=== PATIENT | male | born 1970 | race Caucasian/White ===

== ENCOUNTER → 2018-03-18 20:00 | Outpatient (CLI) | payer OTHER, SELFPAY | PROVIDERS: Family Provider Internal Medicine Infectious Disease; PCP Internal Medicine Infectious Disease; Visit Provider Family Medicine | DX: G47.10 Hypersomnia, unspecified (principal); R06.81 Apnea, not elsewhere classified | CPT/HCPCS: 95810 ==

== ENCOUNTER → 2018-06-15 08:59 | Outpatient (CLI) | payer OTHER, SELFPAY | PROVIDERS: Family Provider Family Medicine; PCP Family Medicine; Visit Provider Family Medicine | DX: G47.33 Obstructive sleep apnea (adult) (pediatric) (principal) | CPT/HCPCS: 95811 ==

== ENCOUNTER → 2019-02-28 15:29 | Outpatient (CLI) | payer OTHER, SELFPAY ==
[2019-02-28 17:54] LABS: PSA,Total - Annual Screen 0.92 ng/mL (0.00-4.00)
== END ==
PROVIDERS: Family Provider Family Medicine; PCP Family Medicine; Visit Provider Family Medicine
DX: Z12.5 Encounter for screening for malignant neoplasm of prostate (principal)
CPT/HCPCS: 36415; 84153; G0103

== ENCOUNTER 2019-04-21 07:01 | Day surgery (SDC) | payer OTHER, SELFPAY ==
--- NOTE | 2019-03-28 03:39 | HP_ITS ---
Intake Vital Signs 03/28/19 Height 6 ft 2 in 03/28/19 Weight: 238 lb 7 oz 03/28/19 Body Mass Index (BMI) 30.6 03/28/19 Blood Pressure 127/81 H 03/28/19 Blood Pressure Location Rt brachial 03/28/19 Blood Pressure Position Sitting 03/28/19 Respiratory Rate 18 03/28/19 Pulse Rate 57 L 03/28/19 Pulse Ox 98 Intake Visit Reasons: + cologuard per Dr. Devlin office Chief Complaint: positive cologuard Bank Reconciliator Required: No Is patient in pain?: No Allergies No Known Allergies Allergy (Verified 03/28/19 15:35) Medications Paroxetine HCl [Paxil] 40 mg PO DAILY 12/19/13 [History Confirmed 03/28/19] alprazolam 0.5 mg tablet 0.5 mg PO QHS PRN 03/28/19 [History Confirmed 03/28/19] PFSH Medical History Anxiety (Acute) History of testicular cancer (Acute) Sleep apnea (Acute) Surgical History History of orchiectomy (Acute) Family History Sister Asthma Grandfather Diabetes Social History Smoking Status: Unknown if ever smoked HPI HPI HPI: ALEJANDRA LOUISE, is a 49 M who presents to the office today for HPI HPI Surgical H&P: Yes HPI: ALEJANDRA LOUISE, is a 49 M who presents to the office today for colonoscopy after positive Cologuard test. Patient reports no blood in the stool or abdominal pain. He has no family history of colon cancer. He has never had a colonoscopy. ROS General General: No weight change, appetite, fatigue, colon cancer, breast cancer or weakness HEENT HEENT: No difficulty swallowing, eye injury, eye surgery, swollen glands or hoarseness Endo Endocrine: No thyroid disease, diabetes mellitus, thyroid cancer, Hair loss, heat intolerance or cold intolerance Cardio Cardiovascular: No murmur, pacemaker, heart disease, atrial fibrillation, high blood pressure, heart attack, heart stent, palpitations, shortness of breat with exertion or chest pain Psych Psychiatric: Yes anxiety; no depression or hearing voices Resp Respiratory: No shortness of breath, Yes sleep apnea, No cough, No COPD, No asthma, No emphysema, No wheezing Gastro Gastrointestinal: No abdominal pain, No nausea or vomiting, No diarrhea, No constipation, No blood in stool, No acid reflux, No hemorrhoids, No ulcers, No gallbladder problem, No black,tarry stools Neuro Neurologic: No weakness Exam Const General: cooperative Orientation: alert, oriented x3 Resp Effort & Inspection: normal respiratory effort Auscultation: clear to auscultation bilaterally Cardio Rate: regular rate Rhythm: regular rhythm Heart Sounds: no murmurs GI Inspection: non-distended Palpation: soft, nontender Assessment & Plan Problems 1. Positive colorectal cancer screening using DNA-based stool test R19.5 Plan Patient had positive Cologuard test and I will plan to take the patient for colonoscopy. I explained endoscopy in detail to the patient. I explained the risks including but not limited to stroke or heart attack with anesthesia, perforation of the GI tract, bleeding, infection. I explained that any of these could necessitate further emergency surgery. The patient understands and all questions were answered sufficiently. The patient wishes to proceed with procedure. Garcia Gerard MD Pager: [facility] [address] [place] [address], [address] [place] [address] Office: Orders Orders: Colonoscopy Today R19.5 Coding Level of Care Code Off vis,new,level 3 Diagnoses Positive colorectal cancer screening using DNA-based stool test R19.5 03/28/19 1539 <Electronically signed by Garcia potter MD> Date _ Garcia Gerard MD I have re-examined the patient. There are no clinical changes since date of exam.
[2019-03-28 15:34] VITALS: BMI 30.6
[2019-04-21] VITALS (8 sets, daily range): BP systolic 92–123; BP diastolic 55–75; PULSE 50–59; RESP 16; TEMP 36.6–37.1; O2SAT 97–100; BMI 29.2
--- NOTE | 2019-04-21 08:00 | COLBX_PTH ---
PATIENT: ALEJANDRA LOUISE LOC: EN U#:[id number] AGE/SX: 49/M ROOM: RE04/21/[address]: Dr. Garcia Gerard MD : 1970 BED: DIS: 04/21/2019 SPEC #: [id number] RECD: 04/21/19 10:56 STATUS: BRANDIE GISELA #: [id number] ANABELLA: 04/21/19 08:[address]: Garcia Gerard DEPT: SURGICAL PATHOLOGY RECD BY: Ramirez Patricia ENTERED: 04/21/19 15:03 SP TYPE: COLON BX OTHR DR: Dr. Tee Reid DO Tissues: A - Transverse colon B - Descending colon C - Sigmoid colon biopsy Procedures: Surgery Specimen Level IV HEADER OPERATION: Colonoscopy (MAC) PRE-OP DIAGNOSIS: Positive Cologuard TISSUE SUBMITTED: A - Transverse colon polyp, B - Descending colon polyp, C - Sigmoid colon polyp MICROSCOPIC DIAGNOSIS A. Transverse colon polyp, biopsy: Fragments of hyperplastic polyp. B. Descending colon polyp, biopsy: Hyperplastic polyp. C. Sigmoid colon polyp, biopsy: Hyperplastic polyp. AM:javier 04/24/19 MICROSCOPIC DESCRIPTION Slides are reviewed. GROSS DESCRIPTION A - Received in fixative is one container labeled with the patient's name and designated transverse colon polyp. The specimen consists of multiple irregular fragments of light hays soft tissue that in aggregate measure 0.7 x 0.2 x 0.1 cm. The specimen is totally submitted in one cassette. B - Received in fixative is one container labeled with the patient's name and designated descending colon polyp. The specimen consists of one irregular fragment of light hays soft tissue that measures 0.6 x 0.4 x 0.2 cm. The specimen is totally submitted in one cassette. C - Received in fixative is one container labeled with the patient's name and designated sigmoid colon polyp. The specimen consists of one irregular fragment of light hays soft tissue that measures 0.7 x 0.6 x 0.3 cm. The specimen is bisected and totally submitted in one cassette. / AM:javier 04/21/19 TC:5 CPT: 31323 x3
--- NOTE | 2019-04-21 08:16 | OP.ENDO_ITS ---
04/21/2019 Tee Reid [address] [place] [address] Re : Colonoscopy procedure for [facility] Board Dear Dr. Reid This procedure was performed on Sunday, April 21, 2019. My impressions and recommendations are as follows: Impressions : - Three polyps in the sigmoid colon, in the descending colon and in the transverse colon, removed with a hot snare. Resected and retrieved. - The examination was otherwise normal on direct and retroflexion views. Recommendations : - Discharge patient to home. - Resume previous diet. - Continue present medications. - Await pathology results. - Physician's office will call you with pathology results and recommendations for when to repeat colonoscopy. - Repeat colonoscopy date to be determined after pending pathology results are reviewed for surveillance based on pathology results. My findings are described in the full procedure note, which is enclosed. If I can be of further assistance, please feel free to contact me at Doctor phone number(s): , Work: . Sincerely, Garcia Gerard MD 04/21/2019 8:16:19 AM This report has been signed electronically.
== END 2019-04-21 09:00 | disposition home or self-care (01) ==
LOC: EN 07:03 → AC 07:04
PROVIDERS: Family Provider Family Medicine; PCP Family Medicine; Referring Provider Family Medicine; Visit Provider Surgery
PROC: 0DJD8ZZ Inspection of Lower Intestinal Tract, Via Natural or Artificial Opening Endoscopic (ICD-10-PCS; CPT 45378; principal; 2019-04-21 07:55)
DX: D12.5 Benign neoplasm of sigmoid colon (principal); D12.4 Benign neoplasm of descending colon; D12.3 Benign neoplasm of transverse colon; F41.9 Anxiety disorder, unspecified; R19.5 Other fecal abnormalities; F17.210 Nicotine dependence, cigarettes, uncomplicated; Z90.79 Acquired absence of other genital organ(s)
CPT/HCPCS: 45385; 88305; J7120

== ENCOUNTER → 2020-03-18 09:29 | Outpatient (CLI) | payer OTHER, SELFPAY ==
[2019-04-21 07:18] VITALS: BMI 29.2
[2020-03-18 10:58] LABS: AST(SGOT) 19 U/L (15-37); Alanine Aminotransfer ALT/SGPT 38 U/L (16-61); Albumin, Serum 3.9 g/dL (3.2-5.0); Alkaline Phosphatase 59 U/L (45-117); Anion Gap 5 (5-15); BUN 16 mg/dL (7-18); BUN/Creat Ratio 18.2 RATIO (10-20); Calcium,Total 8.8 mg/dL (8.5-10.1); Chloride 103 mmol/L (98-107); Cholesterol 209 mg/dL (200); Creatinine, Serum 0.88 mg/dL (0.70-1.30); EST Glomerular Filtration Rate 97 mL/min (>60); Est Glom Filt Rate - Afr Amer 117 mL/min (>60); Globulin 3.9 g/dL (2.2-4.2); Glucose 92 mg/dL (74-106); High Density Lipoprotein 38 mg/dL; Potassium 3.5 mmol/L (3.5-5.1); Protein, Total 7.8 g/dL (6.4-8.2); Sodium Level 139 mmol/L (136-145); Triglycerides 206 mg/dL; Very Low Density Lipoprotein 41 mg/dL (5-40)
== END ==
PROVIDERS: PCP Family Medicine; Visit Provider Family Medicine
DX: I10 Essential (primary) hypertension (principal); E78.5 Hyperlipidemia, unspecified
CPT/HCPCS: 36415; 80053; 80061

== ENCOUNTER → 2020-12-27 06:40 | Outpatient (CLI) | payer OTHER, SELFPAY ==
[2019-04-21 07:18] VITALS: BMI 29.2
== END ==
PROVIDERS: PCP Family Medicine; Referring Provider Otolaryngology; Visit Provider Otolaryngology
DX: H93.12 Tinnitus, left ear (principal)
CPT/HCPCS: 36415; 84443

== ENCOUNTER 2020-12-31 09:22 | Outpatient (RCR) | payer OTHER, SELFPAY ==
[2019-04-21 07:18] VITALS: BMI 29.2
[2020-12-31] MEDS: COVID-19 VACC, MRNA(PFIZER)/PF 30 MCG/0.3 ML SYRINGE IM (07:10)
[2021-01-21] MEDS: COVID-19 VACC, MRNA(PFIZER)/PF 30 MCG/0.3 ML SYRINGE IM (06:56)
== END 2021-03-25 23:59 ==
LOC: IMMUN 09:22
PROVIDERS: PCP Family Medicine; Visit Provider Family Medicine
DX: Z23 Encounter for immunization (principal)
CPT/HCPCS: 0001A; 0002A; 91300

== ENCOUNTER → 2022-03-03 | Outpatient (CLI) | payer OTHER, SELFPAY ==
[2022-03-03 16:51] LABS: Absolute Lymphocyte Count 2.11 X10^3/uL (0.83-4.51); Absolute Neutrophil Count 3.8 X10^3/uL (2.0-7.7); Basophil# 0.06 X10^3/uL; Basophil% 0.9 % (0-1); Eosinophil# 0.24 X10^3/uL; Eosinophils% 3.5 % (0-5); Hematocrit 48.6 % (40-54); Hemoglobin 16.6 g/dL (13.0-16.5); Lymphocyte # 2.11 X10^3/ul (0.83-4.51); Mean Corp Hgb Conc 34.2 g/dL (32-36); Mean Corpuscular Hgb 30.6 pg (27.0-32.0); Mean Corpuscular Volume 89.5 fL (80-94); Monocyte# 0.51 X10^3/uL; Monocyte% 7.5 % (0-10); NRBC Flagged by Analyzer 0 % (0-5); Neutrophil # 3.84 X10^3/uL (2.7-7.7); Neutrophil % 56.5 % (47-70); Platelet Count 261 K/mm3 (150-450); RBC Distribution Width CV 12.9 % (11.6-14.6); RBC Distribution Width SD 42.5 fl (35.1-43.9); Red Blood Count 5.43 M/mm3 (4.6-6.2); White Blood Count 6.8 K/mm3 (4.4-11.0)
[2022-03-03 17:19] LABS: ALB/GLOB Ratio 1.1 RATIO (0.9-2.4); AST(SGOT) 17 U/L (15-37); Alanine Aminotransfer ALT/SGPT 39 U/L (16-61); Albumin, Serum 3.9 g/dL (3.2-5.0); Alkaline Phosphatase 57 U/L (45-117); Anion Gap 5 (5-15); BUN 12 mg/dL (7-18); BUN/Creat Ratio 15.2 RATIO (10-20); Calcium,Total 8.8 mg/dL (8.5-10.1); Chloride 107 mmol/L (98-107); Cholesterol 203 mg/dL (200); Creatinine, Serum 0.79 mg/dL (0.70-1.30); EST Glomerular Filtration Rate 109 mL/min (>60); Est Glom Filt Rate - Afr Amer 132 mL/min (>60); Globulin 3.4 g/dL (2.2-4.2); Glucose 98 mg/dL (74-106); High Density Lipoprotein 37 mg/dL; PSA,Total - Annual Screen 1.22 ng/mL (0.00-4.00); Protein, Total 7.3 g/dL (6.4-8.2); Sodium Level 140 mmol/L (136-145); Triglycerides 132 mg/dL; Very Low Density Lipoprotein 26 mg/dL (5-40)
== END | disposition home or self-care (01) ==
PROVIDERS: PCP Family Medicine; Referring Provider Family Medicine; Visit Provider Family Medicine
DX: Z00.00 Encounter for general adult medical examination without abnormal findings (principal); Z12.5 Encounter for screening for malignant neoplasm of prostate
CPT/HCPCS: 36415; 80053; 80061; 84153; 85025; G0103

== ENCOUNTER → 2022-06-05 | Outpatient (CLI) | payer OTHER, SELFPAY ==
[2022-06-05 16:02] LABS: Vitamin D,25 Hydroxy 16.1 ng/mL
[2022-06-16 17:57] LABS: Testosterone, % Free 2.04 % (1.50-4.20); Testosterone, Total 309 ng/dL (264-916)
== END | disposition home or self-care (01) ==
LOC: LAB 14:34
PROVIDERS: PCP Family Medicine; Referring Provider Family Medicine; Visit Provider Family Medicine
DX: R53.83 Other fatigue (principal); E55.9 Vitamin D deficiency, unspecified
CPT/HCPCS: 36415; 82306; 84402; 84403

== ENCOUNTER → 2022-09-08 | Outpatient (CLI) | payer OTHER, SELFPAY ==
[2022-09-08 15:47] LABS: Vitamin D,25 Hydroxy 50.4 ng/mL
== END | disposition home or self-care (01) ==
LOC: BFHLAB 13:06
PROVIDERS: PCP Family Medicine; Visit Provider Family Medicine
DX: E55.9 Vitamin D deficiency, unspecified (principal); E29.1 Testicular hypofunction
CPT/HCPCS: 36415; 82306; 84403

== ENCOUNTER → 2023-05-20 | Outpatient (CLI) | payer BC, SELFPAY ==
[2023-05-20 12:32] LABS: Absolute Lymphocyte Count 2.67 X10^3/uL (0.83-4.51); Basophil# 0.07 X10^3/uL; Basophil% 0.9 % (0-1); Eosinophil# 0.26 X10^3/uL; Eosinophils% 3.4 % (0-5); Hematocrit 48.1 % (40-54); Hemoglobin 16.3 g/dL (13.0-16.5); Lymphocyte # 2.67 X10^3/ul (0.83-4.51); Lymphocyte % 35.2 % (19-41); Mean Corp Hgb Conc 33.9 g/dL (32-36); Mean Corpuscular Hgb 29.9 pg (27.0-32.0); Mean Corpuscular Volume 88.3 fL (80-94); Mean Platelet Vol. 11.1 fl (6.2-12.0); Monocyte% 7.9 % (0-10); NRBC Flagged by Analyzer 0 % (0-5); Neutrophil # 3.96 X10^3/uL (2.7-7.7); Neutrophil % 52.3 % (47-70); Platelet Count 261 K/mm3 (150-450); RBC Distribution Width CV 13.4 % (11.6-14.6); RBC Distribution Width SD 43.4 fl (35.1-43.9); Red Blood Count 5.45 M/mm3 (4.6-6.2); White Blood Count 7.6 K/mm3 (4.4-11.0)
[2023-05-20 13:14] LABS: AST(SGOT) 20 U/L (15-37); Alanine Aminotransfer ALT/SGPT 36 U/L (16-61); Albumin, Serum 3.7 g/dL (3.2-5.0); Alkaline Phosphatase 55 U/L (45-117); Anion Gap 6 (5-15); BUN 13 mg/dL (7-18); BUN/Creat Ratio 15.4 RATIO (10-20); Calcium,Total 8.8 mg/dL (8.5-10.1); Chloride 105 mmol/L (98-107); Cholesterol 195 mg/dL (200); Creatinine, Serum 0.85 mg/dL (0.70-1.30); EST Glomerular Filtration Rate 100 mL/min (>60); Est Glom Filt Rate - Afr Amer 121 mL/min (>60); Globulin 3.8 g/dL (2.2-4.2); Glucose 81 mg/dL (74-106); High Density Lipoprotein 39 mg/dL; PSA,Total - Annual Screen 1.12 ng/mL (0.00-4.00); Potassium 3.9 mmol/L (3.5-5.1); Protein, Total 7.5 g/dL (6.4-8.2); Sodium Level 138 mmol/L (136-145); Triglycerides 154 mg/dL; Very Low Density Lipoprotein 31 mg/dL (5-40)
== END | disposition home or self-care (01) ==
PROVIDERS: PCP Family Medicine; Referring Provider Family Medicine; Visit Provider Family Medicine
DX: Z00.00 Encounter for general adult medical examination without abnormal findings (principal); Z12.5 Encounter for screening for malignant neoplasm of prostate; R53.83 Other fatigue
CPT/HCPCS: 36415; 80053; 80061; 84153; 84403; 85025; G0103

== ENCOUNTER → 2023-06-28 | Outpatient (CLI) | payer BC, SELFPAY ==
--- NOTE | 2023-06-28 07:18 | CT_ITS ---
STUDY: LOW DOSE CT LUNG CANCER SCREENING REASON FOR EXAM: Male, 53 years old. One pack per day smoker x38 years RADIATION DOSAGE (If Supplied By Facility): CTDIvol = ( 4.02 ) mGy, DLP = ( 146.97 ) mGycm TECHNIQUE: No contrast was administered. Low dose technique was utilized (average mAS-38 and kVp 120). 1.25 mm axial source images with a slice interval of 1.25-mm were reconstructed in lung windows. 2.5 mm axial source images with a slice interval of 2.5-mm were reconstructed in lung windows. 5.0 mm axial source images with a slice interval of 5.0-mm were reconstructed in soft tissue windows. COMPARISON: None. FINDINGS: Lung windows show the lungs to be normally expanded. No organized infiltrate, effusion, or suspicious noncalcified mass or nodule. Limited soft tissue windows show normal-appearing thyroid gland. No suspicious axillary, mediastinal, or perihilar mass or adenopathy. There are calcified coronary vessels. Thoracic aorta tapers normally. Bony structures show degenerative change. Limited cuts through the upper abdomen do not show a suspicious abnormality CT/Low Dose CT Lung Screening IMPRESSION: Lung-RADS category 2 - Continue annual screening with LDCT in 12 months. IMPORTANT NOTES FOR USE: ACR Lung-RADS Version 1.1 Assessment Categories Release Date: 2018 Category: Coded 0-4 bases on nodule(s) with highest degree of suspicion. Negative screen is defined as categories 1 and 2; a positive screen is defined as categories 3 and 4. Category 3 and 4A nodules that are unchanged on interval CT should be coded as category 2, and individuals returned to screening in 12 months. Category 4X: Category 3 or 4 nodules with additional imaging findings that increase the suspicion of lung cancer, such as spiculation, GGN that doubles in size in 1 year, enlarged lymph notes, etc. Category Modifiers: S (significant finding unrelated to lung cancer) Electronically Signed: Lul Benson MD at 8:58 EDT ,
== END | disposition home or self-care (01) ==
PROVIDERS: PCP Family Medicine; Referring Provider Family Medicine; Visit Provider Family Medicine
DX: Z12.2 Encounter for screening for malignant neoplasm of respiratory organs (principal); F17.210 Nicotine dependence, cigarettes, uncomplicated
CPT/HCPCS: 71271

== ENCOUNTER → 2024-05-26 | Outpatient (CLI) | payer BC, SELFPAY ==
[2024-05-26 11:19] LABS: Absolute Lymphocyte Count 3.43 X10^3/uL (0.83-4.51); Absolute Neutrophil Count 3.9 X10^3/uL (2.0-7.7); Basophil# 0.11 X10^3/uL; Basophil% 1.3 % (0-1); Eosinophils% 3.5 % (0-5); Hematocrit 49.8 % (40-54); Hemoglobin 16.4 g/dL (13.0-16.5); Lymphocyte # 3.43 X10^3/ul (0.83-4.51); Lymphocyte % 40.5 % (19-41); Mean Corp Hgb Conc 32.9 g/dL (32-36); Mean Corpuscular Hgb 29.7 pg (27.0-32.0); Mean Corpuscular Volume 90.2 fL (80-94); Mean Platelet Vol. 11.8 fl (6.2-12.0); Monocyte# 0.72 X10^3/uL; Monocyte% 8.5 % (0-10); NRBC Flagged by Analyzer 0 % (0-5); Neutrophil # 3.87 X10^3/uL (2.7-7.7); Neutrophil % 45.7 % (47-70); Platelet Count 274 K/mm3 (150-450); RBC Distribution Width CV 13.2 % (11.6-14.6); RBC Distribution Width SD 43.4 fl (35.1-43.9); Red Blood Count 5.52 M/mm3 (4.6-6.2); White Blood Count 8.5 K/mm3 (4.4-11.0)
[2024-05-26 12:00] LABS: ALB/GLOB Ratio 1.1 RATIO (0.9-2.4); AST(SGOT) 23 U/L (15-37); Alanine Aminotransfer ALT/SGPT 52 U/L (16-61); Albumin, Serum 4.1 g/dL (3.2-5.0); Alkaline Phosphatase 66 U/L (45-117); Anion Gap 5 (5-15); BUN 13 mg/dL (7-18); Calcium,Total 8.9 mg/dL (8.5-10.1); Chloride 108 mmol/L (98-107); Cholesterol 197 mg/dL (200); Creatinine, Serum 0.87 mg/dL (0.70-1.30); EST Glomerular Filtration Rate 97 mL/min (>60); Est Glom Filt Rate - Afr Amer 117 mL/min (>60); Globulin 3.6 g/dL (2.2-4.2); Glucose 83 mg/dL (74-106); High Density Lipoprotein 39 mg/dL; PSA,Total - Annual Screen 0.81 ng/mL (0.00-4.00); Potassium 3.9 mmol/L (3.5-5.1); Protein, Total 7.7 g/dL (6.4-8.2); Sodium Level 140 mmol/L (136-145); Triglycerides 156 mg/dL; Very Low Density Lipoprotein 31 mg/dL (5-40)
== END | disposition home or self-care (01) ==
LOC: LAB 09:58
PROVIDERS: PCP Family Medicine; Referring Provider Family Medicine; Visit Provider Family Medicine
DX: Z00.00 Encounter for general adult medical examination without abnormal findings (principal); R53.83 Other fatigue
CPT/HCPCS: 36415; 80053; 80061; 84153; 84403; 85025; G0103

== ENCOUNTER → 2025-01-09 | Outpatient (CLI) | payer BC, SELFPAY ==
--- NOTE | 2025-01-09 06:56 | CT_ITS ---
EXAM: CT Chest, Lung Cancer Screening Without Intravenous Contrast CLINICAL INDICATION: SCREENING, SMOKER TECHNIQUE: Axial computed tomography images of the chest without intravenous contrast using low dose (LDCT) lung cancer screening protocol. This CT exam was performed using one or more of the following dose reduction techniques: automated exposure control, adjustment of the mA and/or kV according to patient size, and/or use of iterative reconstruction technique. COMPARISON: CT Lung Cancer Screening dated 06/28/2023 FINDINGS: LUNGS AND PLEURAL SPACES: Lung emphysema. Lingular atelectasis or scarring. No pneumothorax. No significant effusion. No new suspicious pulmonary nodules. HEART: Unremarkable. No cardiomegaly. No significant pericardial effusion. No significant coronary artery calcifications. BONES/JOINTS: Unremarkable. No acute fracture. No dislocation. SOFT TISSUES: Unremarkable. VASCULATURE: Unremarkable. No thoracic aortic aneurysm. LYMPH NODES: Unremarkable. No enlarged lymph nodes. CT/Low Dose CT Lung Screening IMPRESSION: 1. No new suspicious pulmonary nodules. 2. LUNG-RADS 1: Continue low-dose CT screening of the chest in 12 months is re commended. Reading Location: [facility]
== END | disposition home or self-care (01) ==
PROVIDERS: PCP Family Medicine; Referring Provider Family Medicine; Visit Provider Family Medicine
DX: Z12.2 Encounter for screening for malignant neoplasm of respiratory organs (principal); F17.200 Nicotine dependence, unspecified, uncomplicated
CPT/HCPCS: 71271

== ENCOUNTER → 2025-06-04 | Outpatient (CLI) | payer BC, SELFPAY ==
[2025-06-04 09:24] LABS: Hematocrit 49.7 % (40-54); Hemoglobin 17.2 g/dL (13.0-16.5); Immature Granulocytes Count 0.050 X10^3/uL (0.0-0.0); Mean Corp Hgb Conc 34.6 g/dL (32-36); Mean Corpuscular Volume 88.0 fL (80-94); Mean Platelet Vol. 10.4 fl (6.2-12.0); NRBC Flagged by Analyzer 0 % (0-5); Platelet Count 297 K/mm3 (150-450); RBC Distribution Width CV 13.5 % (11.6-14.6); RBC Distribution Width SD 43.3 fl (35.1-43.9); Red Blood Count 5.65 M/mm3 (4.6-6.2); White Blood Count 10.1 K/mm3 (4.4-11.0)
[2025-06-04 10:39] LABS: AST(SGOT) 28 U/L (<=37); Alanine Aminotransfer ALT/SGPT 60 U/L (<=46); Albumin, Serum 4.4 g/dL (3.5-5.0); Alkaline Phosphatase 78 U/L (40-129); Anion Gap 14 (5-15); Calcium,Total 9.5 mg/dL (7.6-11.0); Carbon Dioxide 22.0 mmol/L (21.0-32.0); Chloride 102 mmol/L (98-108); Globulin 3.4 g/dL (2.2-4.2); Glucose 125 mg/dL (70-99); PSA,Total - Annual Screen 0.92 ng/mL (0.02-4.00); Potassium 4.1 mmol/L (3.3-5.1)
[2025-06-04 12:00] LABS: BUN 15 mg/dL (4-19); BUN/Creat Ratio 15.5 RATIO (10-20); Cholesterol 207 mg/dL (<=200); Low Density Lipoprotein Calc. 137 mg/dL; Triglycerides 125 mg/dL; Very Low Density Lipoprotein 25 mg/dL (5-40); cholesterol:hdl ratio screen 4.62
== END | disposition home or self-care (01) ==
PROVIDERS: PCP Family Medicine; Referring Provider Family Medicine; Visit Provider Family Medicine
DX: Z00.00 Encounter for general adult medical examination without abnormal findings (principal); Z12.5 Encounter for screening for malignant neoplasm of prostate; R53.83 Other fatigue; R73.01 Impaired fasting glucose
CPT/HCPCS: 36415; 80053; 80061; 83036; 84153; 84403; 85025; G0103

== ENCOUNTER → 2025-07-26 | Outpatient (CLI) | payer BC, SELFPAY ==
[2025-07-26 09:11] LABS: Color, Urine Yellow (Yellow); Glucose, Dipstick Normal (Normal); Ketone-Dipstick 5 mg/dl (Negative); Leukocyte Esterase-Dipstick Negative /ul (Negative); Nitrite-Dipstick Negative (Negative); Occult Blood-Urine 25 /ul (Negative); Protein-Dipstick 30 mg/dl (Negative); Specific Gravity, Urine 1.025 (1.002-1.030); Urine Bilirubin Dipstick Negative (Negative)
[2025-07-26 09:47] LABS: Anion Gap 10 (5-15); BUN 12 mg/dL (4-19); BUN/Creat Ratio 15.4 RATIO (10-20); Calcium,Total 9.3 mg/dL (7.6-11.0); Carbon Dioxide 26.0 mmol/L (21.0-32.0); Chloride 103 mmol/L (98-108); Glucose 93 mg/dL (70-99); Potassium 3.7 mmol/L (3.3-5.1)
== END | disposition home or self-care (01) ==
LOC: LAB 08:46
PROVIDERS: PCP Family Medicine; Referring Provider Family Medicine; Visit Provider Family Medicine
DX: E11.9 Type 2 diabetes mellitus without complications (principal); R79.89 Other specified abnormal findings of blood chemistry; R31.29 Other microscopic hematuria; R82.90 Unspecified abnormal findings in urine
CPT/HCPCS: 36415; 80048; 81002

== ENCOUNTER → 2025-08-15 | Outpatient (CLI) | payer BC, SELFPAY ==
--- NOTE | 2025-08-15 | CYSPIN_PTH ---
PATIENT: ALEJANDRA LOUISE LOC: CT U#:[id number] AGE/SX: 55/M ROOM: RE08/15/[address]: Dr. Tee Reid DO : 1970 BED: DIS: 08/15/2025 SPEC #: [id number] RECD: 08/15/25 08:18 STATUS: BRANDIE GISELA #: [id number] ANABELLA: 08/15/25 00:[address]: Tee Reid DEPT: CYTOLOGY RECD BY: Sandro Guzmán Tissues: A - Urine Procedures: Pap Stain (control) Special Stain Group II Cytospin Fluid HEADER OPERATION: Not noted PRE-OP DIAGNOSIS: Abnormal weight loss, type 2 diabetes mellitus without complications, other specified abnormal findings of blood chemistry, unspecified abnormal findings in urine, other fatigue TISSUE SUBMITTED: A- Urine for cytology - voided DIAGNOSIS CYTOLOGY A. Urine, voided (cytospin): - Atypical urothelial cells present. - Negative for high grade urothelial carcinoma. - Red blood cells present. CYTOLOGY STUDY Slides are reviewed. CYTOLOGY GROSS A. Received is 30 ml of yellow fluid labeled with the patient's name and and designated per the requisition as urine. Submitted for cytology preparation. 08/15/2025 CPT: 01616
--- NOTE | 2025-08-15 | CYSPIN_PTH ---
PATIENT: ALEJANDRA LOUISE LOC: CT U#:[id number] AGE/SX: 55/M ROOM: RE08/15/[address]: Dr. Tee Reid DO : 1970 BED: DIS: 08/15/2025 SPEC #: [id number] RECD: 08/15/25 08:18 STATUS: BRANDIE GISELA #: [id number] ANABELLA: 08/15/25 00:[address]: Tee Reid DEPT: CYTOLOGY RECD BY: Sandro Guzmán Tissues: A - Urine Procedures: Pap Stain (control) Special Stain Group II Cytospin Fluid HEADER OPERATION: Not noted PRE-OP DIAGNOSIS: Abnormal weight loss, type 2 diabetes mellitus without complications, other specified abnormal findings of blood chemistry, unspecified abnormal findings in urine, other fatigue TISSUE SUBMITTED: A- Urine for cytology - voided DIAGNOSIS CYTOLOGY A. Urine, voided (cytospin): - Atypical urothelial cells present. - Negative for high grade urothelial carcinoma. - Red blood cells present. CYTOLOGY STUDY Slides are reviewed. CYTOLOGY GROSS A. Received is 30 ml of yellow fluid labeled with the patient's name and and designated per the requisition as urine. Submitted for cytology preparation. 08/15/2025 CPT: 71469
[2025-08-15 08:20] LABS: Cytology, Body Fluid / CSF SEE PATHOLOGY REPORT
[2025-08-15 09:35] LABS: Color, Urine Yellow (Yellow); Glucose, Dipstick Normal (Normal); Ketone-Dipstick Negative (Negative); Leukocyte Esterase-Dipstick Negative /ul (Negative); Nitrite-Dipstick Negative (Negative); Occult Blood-Urine 25 /ul (Negative); Protein-Dipstick Negative (Negative); Specific Gravity, Urine 1.010 (1.002-1.030); Urine Bilirubin Dipstick Negative (Negative)
[2025-08-15 09:40] LABS: Hematocrit 50.5 % (40-54); Hemoglobin 17.1 g/dL (13.0-16.5); Immature Granulocytes Count 0.020 X10^3/uL (0.0-0.0); Mean Corp Hgb Conc 33.9 g/dL (32-36); Mean Corpuscular Volume 89.7 fL (80-94); Mean Platelet Vol. 12.0 fl (6.2-12.0); NRBC Flagged by Analyzer 0 % (0-5); Platelet Count 283 K/mm3 (150-450); RBC Distribution Width CV 13.5 % (11.6-14.6); RBC Distribution Width SD 44.4 fl (35.1-43.9); Red Blood Count 5.63 M/mm3 (4.6-6.2); White Blood Count 7.3 K/mm3 (4.4-11.0)
[2025-08-15 10:36] LABS: AST(SGOT) 24 U/L (<=37); Alanine Aminotransfer ALT/SGPT 53 U/L (<=46); Albumin, Serum 4.3 g/dL (3.5-5.0); Alkaline Phosphatase 67 U/L (40-129); Anion Gap 10 (5-15); BUN 11 mg/dL (4-19); BUN/Creat Ratio 12.4 RATIO (10-20); CORTISOL AM 11.70 ug/dL (6.02-18.40); CRP < 3.00 mg/L (0.0-3.0); Calcium,Total 9.6 mg/dL (7.6-11.0); Carbon Dioxide 26.4 mmol/L (21.0-32.0); Chloride 104 mmol/L (98-108); Globulin 2.9 g/dL (2.2-4.2); Glucose 113 mg/dL (70-99); Potassium 4.4 mmol/L (3.3-5.1)
--- NOTE | 2025-08-15 17:15 | CT_ITS ---
PROCEDURE: CT ABD/PELVIS W/WO CONTRAST 08/15/2025 REASON FOR EXAM: OTHER MICROSCOPIC HEMATURIA, HX OF SMOKING history of testicular cancer. Right orchiectomy. TECHNIQUE: Procedure Code: [id number] Modality: CT Procedure: CT ABD/PELVIS W/WO CONTRAST Coronal and Sagittal reconstruction series were provided. CONTRAST: Isovue-300 VOLUME: 98 mL One or more dose reduction techniques were used (e.g., Automated exposure control, adjustment of the mA and/or kV according to patient size, use of iterative reconstruction technique. RADIATION DOSE SUMMARY: DLP: 5088.7 mGycm COMPARISON: None. FINDINGS: Genitourinary tract: 16 mm nonenhancing cyst from the medial left renal cortex. Kidneys are otherwise unremarkable. No renal or ureteral stones. No hydronephrosis or hydroureter. Delayed imaging shows no evidence of urothelial tumor. The urinary bladder is unremarkable. Adrenal glands are normal. Upper normal prostate size at 4.2 cm in transverse dimension. Non : Lung bases are clear. No basilar lung nodule. Normal heart size. Mild hepatic steatosis. Tiny 3 mm hypodensity in the right hepatic lobe, probably cyst or hemangioma but too small to characterize. Liver is otherwise unremarkable. Gallbladder probably contains tiny stones in the neck. No signs of cholecystitis. No biliary dilatation. Pancreas and spleen are normal. The gastrointestinal tract is unremarkable including a normal appendix. No mesenteric or retroperitoneal adenopathy. Mild aortoiliac calcified plaque without aneurysm. Unilateral right L5 pars defect at L5. No spondylolisthesis. No fracture or suspicious bone lesion. CT/CT Abd/Pelvis W/WO Contrast IMPRESSION: 1. No evidence of metastatic disease in the abdomen or pelvis (reported histor y of testicular cancer). 2. Tiny benign left renal cyst. Kidneys, ureters, and urinary bladder are oth erwise normal. No findings to explain hematuria. No urolithiasis. 3. Tiny 3-4 mm hypodensity in the right hepatic lobe, too small to characteriz e but probably benign cyst or hemangioma. Reading Location: [facility]
--- OUTSIDE RECORDS SUMMARY | 2025-08-15 18:26 | XMS RPT_ITS | CCD ---
Author Organization [facility] Care Team Providers Care Zipper Joiner Name Role Phone Stone Reid Primary Care Unavailable Stone Reid Attending Unavailable Jeanette, Stone Referring Unavailable Jeanette, Stone Primary Care Unavailable Jeanette, Stone Attending Unavailable Jeanette, Stone Primary Care Unavailable Jeanette, Stone Attending Unavailable Jeanette, Stone Primary Care Unavailable Jeanette, Stone Attending Unavailable Jeanette, Stone Referring Unavailable Jeanette, Stone Primary Care Unavailable Jeanette, Stone Attending Unavailable Jeanette, Stone Referring Unavailable Honorio Orourke Attending Unavailable Jeanette, Stone Primary Care Unavailable Jeanette, Stone Primary Care Unavailable Jeanette, Stone Attending Unavailable Jeanette, Stone Referring Unavailable SeeHonorio de leon Attending Unavailable Jeanette, Stone Primary Care Unavailable Honorio Orourke Attending Unavailable Jeanette, Stone Primary Care Unavailable SeeHonorio de leon Attending Unavailable Jeanette, Stone Primary Care Unavailable Jeanette, Stone Primary Care Unavailable Honorio Orourke Attending Unavailable Honorio Orourke Attending Unavailable Jeanette, Stone Primary Care Unavailable ZOË RYAN Referring Unavailable SHELBY CARRANZA Attending Unavailable STONE REID Primary Care Unavailable ZOË RYAN Attending Unavailable STONE REID Primary Care Unavailable Allergies Allergy Classification Reported Allergen(s) Allergy Type Date of Onset Reaction(s) Facility (2 sources) Ibuprofen; Translations: [IBUPROFEN] Drug Allergy 07-10-2025 [facility] Repository Medications Current Medications Medication Drug Class(es) Dates Sig (Normalized) Sig (Original) 8 hr acetaminophen 650 mg extended release oral tablet (4 sources) Start: 04-18-2019 Acetaminophen Active 650 MG PO NEEDED April 18, 2019 12:00am ALPRAZolam 0.5 mg oral tablet (4 sources) Benzodiazepine Start: 03-28-2019 take 1 tablet by mouth at bedtime Alprazolam (Xanax) 0.5 mg tablet Active 0.5 MG PO AT BEDTIME March 28, 2019 12:00am PARoxetine hydrochloride 40 mg oral tablet (4 sources) Serotonin Reuptake Inhibitor Start: 12-19-2013 take 40 mg by mouth once daily Paroxetine Hcl Active 40 MG PO DAILY December 19, 2013 1:00am Completed/Discontinued Medications Medication Drug Class(es) Dates Sig (Normalized) Sig (Original) acetaminophen 325 mg / HYDROcodone bitartrate 5 mg oral tablet (4 sources) Opioid Agonist Start: 04-06-2015 End: 03-28-2019 take 1 tablet by mouth every six hours as needed Hydrocodone-Aceta minophen Discontinued 1 TABLET PO EVERY 6 HOURS NEEDED April 06, 2015 9:57am March 28, 2019 3:35pm amoxicillin 875 mg oral tablet (4 sources) Penicillin-class Antibacterial Start: 04-06-2015 End: 03-28-2019 take 875 mg by mouth twice daily Amoxicillin Discontinued 875 MG PO TWICE A DAY April 06, 2015 12:00am March 28, 2019 3:35pm sulfamethoxazole 800 mg / trimethoprim 160 mg oral tablet (4 sources) Dihydrofolate Reductase Inhibitor Antibacterial, Sulfonamide Antimicrobial Start: 04-06-2015 End: 03-28-2019 take 1 tablet by mouth twice daily Sulfamethoxazole- Trimethoprim Discontinued 1 TABLET PO TWICE A DAY April 06, 2015 12:00am March 28, 2019 3:35pm Problems Active Problems Problem Classification Problem Date Documented Da te Episodic/Chronic Anxiety disorders (2 sources) Panic disorder [episodic paroxysmal anxiety]; Translations: [Generalized anxiety disorder] Onset: 07-10-2025 Chronic Cancer of testis (1 source) Malignant neoplasm of right testis, unspecified whether descended or undescended; Translations: [Malignant neoplasm of right testis, unspecified whether descended or undescended (HCC)] Onset: 08-14-2025 Chronic Diabetes mellitus without complication (2 sources) Type 2 diabetes mellitus without complications; Translations: [Type 2 diabetes mellitus without complications] Onset: 07-26-2025 Chronic Genitourinary symptoms and ill-defined conditions (3 sources) Other microscopic hematuria; Translations: [Frequency of micturition] Onset: 08-10-2025 Episodic Mood disorders (1 source) Major depressive disorder, single episode, unspecified; Translations: [Major depressive disorder, single episode, unspecified] Onset: 07-10-2025 Chronic Nausea and vomiting (1 source) Nausea; Translations: [Nausea] Onset: 08-10-2025 Episodic Other screening for suspected conditions (not mental disorders or infectious disease) (3 sources) Other specified abnormal findings of blood chemistry; Translations: [Encounter for screening for malignant neoplasm of respiratory organs] Onset: 12-08-2024 Episodic Screening and history of mental health and substance abuse codes (1 source) Personal history of nicotine dependence; Translations: [Personal history of nicotine dependence] Onset: 08-14-2025 Episodic Past or Other Problems Problem Classification Problem Date Documented Da te Episodic/Chronic Malaise and fatigue (1 source) Other fatigue; Translations: [Other fatigue] Onset: 12-08-2024 Episodic Results Test Name Value Interpretation Reference Range Facility CNOVon 08-14-2025 CNOV Office Visit (UROLMD) ALEJANDRA LOUISE ([id number]) 1970 M Date Time Provider Department 08/14/25 8:00 AM SHELBY CARRANZA UROLMD During your visit today, we recorded the following information about you: Weight Height 123.4 kg 1.88 m Lizz Chung MA 08/14/2025 9:06 AM Signed 0 mL of urine in the bladder after voiding Shelby Carranza, [employer].LINDA 08/14/2025 9:06 AM Signed Alejandra Louise is a 55 year old male who presents today for evaluation of Patient presents with: Urinary Frequency Blood In Urine Consultation requested by Zoë Ryan CNP for an opinion regarding microscopic hematuria. My final recommendations will be communicated back to the requesting physician by way of shared medical record or letter via US mail CHIEF COMPLAINT AND HISTORY OF PRESENT ILLNESS The patient is a 55-year-old male with history of seminoma in remission and type 2 diabetes mellitus, presenting for evaluation of microscopic hematuria. The patient is a 55-year-old male with a history of testicular cancer, presenting for evaluation of hematuria and weight loss. Hematuria: - Microscopic hematuria noted in urine sample 4 days ago; no visible hematuria reported. Urine noted small blood, no microscopic was sent - No history of kidney stones, bladder, prostate, or kidney surgery. - No dysuria or UTIs. - Recent PSA level of 0.92 mg/mL in May. Weight Loss: - Unintentional weight loss of 27-30 lbs since May. - Initially attempted weight loss after discontinuing Abilify. - Diagnosed with type 2 diabetes in May; dietary changes include cutting out sweets and soda. - Increased exercise, but not to a degree expected to cause significant weight loss. - Variable appetite; eats daily but reports less appetite. Testicular Cancer: - Diagnosed with testicular cancer in 2001; underwent right orchiectomy at hospital in [place]. - Recurrence in 2006 with metastasis to lymph nodes; treated with four cycles of chemotherapy at [facility] in [place]. - No current pain or swelling in the remaining testicle. - History of varicocele. - CT scan of the abdomen and pelvis scheduled for tomorrow at 17:30. - PVR 0 cc Smoking: - Current smoker; history of exposure to secondhand smoke from father during childhood. Family History: - Mother has schizophrenia. - Father has asthma. VITALS: Height 188 cm (6' 2), weight 123.4 kg (272 lb). ALLERGIES: Ibuprofen MEDICATIONS: Current Outpatient Medications Medication Sig Dispense Refill ALPRAZolam (XANAX) 0.5 mg tablet Take 0.5 mg by mouth two times a day. PARoxetine (PAXIL) 10 mg tablet Take 10 mg by mouth once daily. Total of 50 mg TRELEGY ELLIPTA 200-62.5-25 mcg inhalation powder Inhale 1 puff as instructed once daily. cholecalciferol, Vitamin D3, (VITAMIN D3) 1,250 mcg (50,000 unit) cap capsule Take 50,000 Units by mouth once every month. ondansetron orally disintegrating (ZOFRAN ODT) 4 mg disintegrating tablet Take 1 tablet by mouth every 6 hours as needed for nausea/vomiting for up to 7 days. 20 tablet 0 MULTIVITAMIN (MULTIPLE VITAMIN ORAL) Take 1 tablet by mouth once daily. acetaminophen (TYLENOL) 325 mg tablet Take 650 mg by mouth every 6 hours as needed. paroxetine hcl(PAXIL 40 MG TAB) Take one(1) tablet daily. 0 No current facility-administere d medications for this visit. SOCIAL HISTORY: SOCIAL HISTORY[1] PAST MEDICAL HISTORY: PAST MEDICAL HISTORY Diagnosis Date Current smoker Diabetes mellitus (HCC) Testicular cancer (HCC) 2002 right PAST SURGICAL HISTORY: PAST SURGICAL HISTORY Procedure Laterality Date ORCHIECTOMY SIMPLE Right FAMILY HISTORY: FAMILY HISTORY Problem Relation Age of Onset Schizophrenia Mother Asthma Father All histories reviewed on this date 08/14/2025: Yes REVIEW OF SYSTEMS: CONSTITUTIONAL: weight loss, amount 30 CARDIOVASCULAR: Negative for chest pain. RESPIRATORY: +smoker All other systems reviewed and are negative other than HPI. RADIOLOGY REPORTS REVIEWED: Yes LAB RESULTS REVIEWED: Yes IMAGING STUDIES INDEPENDENTLY REVIEWED: N/A OLD RECORDS REVIEWED: Yes: Extensive: No PHYSICAL EXAM: constitutional: appears healthy in no acute distress respiratory: normal respiratory motion gu: scrotum: Normal epididymis: left epididymal cyst urethral meatus: Normal penis: no lesions or deformities. testes: normal size and symmetry, no masses, right absent genitial skin: Normal ASSESSMENT/PLAN: 1. Microscopic hematuria (R31.29) - Urinalysis from four days ago showed small blood, and today's sample showed trace hematuria. Ordered microscopic urinalysis to quantify RBCs. No dysuria or history of UTIs. Recent PSA level from May was 0.92 mg/mL, within normal limits. Awaiting results of CT scan of the abdomen and pelvis scheduled for tomorrow evening at 1730, ordered by Dr. Lynn. Jerry mcdonald (more content not included)... Normal [facility] Urinalysis complete panel (U )on 08-14-2025 Bilirubin Ql (U) Negative Normal Negative [facility] Comment on above: Order Comment: Speci men Type: URINE SPECIMEN Ordering Facility: [facility] Address: [address] [place], [place] [id number] Performed By: #### 2 4356-8 #### [facility] CLIA [id number] [address] [place] [address] [place] Clarity (Unsp spec) Clear Normal Clear [facility] Comment on above: Order Comment: Speci men Type: URINE SPECIMEN Ordering Facility: [facility] Address: [address] [place] [address] Performed By: #### 2 4356-8 #### [facility] CLIA [id number] [address] [place] Color (U) Yellow Normal Yellow [facility] Comment on above: Order Comment: Speci men Type: URINE SPECIMEN Ordering Facility: [facility] Address: [address] [place] [address] Performed By: #### 2 4356-8 #### [facility] CLIA [id number] [address] [place] [address] [place] Glucose Test strip (U) [Mass/Vol] Negative Normal Negative [facility] Comment on above: Order Comment: Speci men Type: URINE SPECIMEN Ordering Facility: [facility] Address: [address] [place] [address] Performed By: #### 2 4356-8 #### [facility] CLIA [id number] [address] [place] [address] [place] Hemoglobin Ql (U) Negative Normal Negative [facility] Comment on above: Order Comment: Speci men Type: URINE SPECIMEN Ordering Facility: [facility] Address: [address] [place] [address] Performed By: #### 2 4356-8 #### [facility] CLIA [id number] [address] OF [facility] Ketones Ql (U) Negative Normal Negative [facility] Comment on above: Order Comment: Speci men Type: URINE SPECIMEN Ordering Facility: [facility] Address: [address] [place] [address] Performed By: #### 2 4356-8 #### [facility] CLIA [id number] [address] [place] Leukocyte esterase Test strip Ql (U) Negative Normal Negative [facility] Comment on above: Order Comment: Speci men Type: URINE SPECIMEN Ordering Facility: [facility] Address: [address] [place] [address] Performed By: #### 2 4356-8 #### [facility] CLIA [id number] [address] [place] [address] [place] Nitrite Ql (U) Negative Normal Negative [facility] Comment on above: Order Comment: Speci men Type: URINE SPECIMEN Ordering Facility: [facility] Address: [address] [place] [address] Performed By: #### 2 4356-8 #### [facility] CLIA [id number] [address] [place] [address] [facility] [place] pH (U) 7.0 [pH] Normal 5.0-8.0 [facility] Comment on above: Order Comment: Speci men Type: URINE SPECIMEN Ordering Facility: [facility] Address: [address] [place] [address] Performed By: #### 2 4356-8 #### [facility] CLIA [id number] [address] [place] Protein (U) [Mass/Vol] Negative Normal Negative [facility] Comment on above: Order Comment: Speci men Type: URINE SPECIMEN Ordering Facility: [facility] Address: [address] [place] [address] Performed By: #### 2 4356-8 #### [facility] CLIA [id number] [address] [place] [address] [place] RBC LM.HPF (Urine sed) [#/Area] 0-3 /HPF Normal 0-3 /HPF [facility] Comment on above: Order Comment: Speci men Type: URINE SPECIMEN Ordering Facility: [facility] Address: [address] [place] [address] Performed By: #### 2 4356-8 #### [facility] CLIA [id number] [address] [place] [address] [place] Specific gravity (U) [Rel density] 1.010 Normal 1.005-1.030 [facility] Comment on above: Order Comment: Speci men Type: URINE SPECIMEN Ordering Facility: [facility] Address: [address] [place] [address] Performed By: #### 2 4356-8 #### [facility] CLIA [id number] [address] [place] Urobilinogen Ql (U) 0.2 EU/dL Normal 0.2-1.0 EU/dL [facility] Comment on above: Order Comment: Speci men Type: URINE SPECIMEN Ordering Facility: [facility] Address: [address] [place] [address] Performed By: #### 2 4356-8 #### [facility] CLIA [id number] [address] [place] [facility] WBC LM.HPF (Urine sed) [#/Area] 0-5 /HPF Normal 0-5 /HPF [facility] Comment on above: Order Comment: Speci men Type: URINE SPECIMEN Ordering Facility: [facility] Address: [address] [place] [address] Performed By: #### 2 4356-8 #### [facility] CLIA [id number] [address] CNOVon 08-10-2025 CNOV Office Visit (WOUCA) ALEJANDRA LOUISE ([id number]) 1970 M Date Time Provider Department 08/10/25 9:00 AM ZOË RYAN During your visit today, we recorded the following information about you: Temperature Pulse Respiration Blood pressure 98 degrees 99/minute 18/minute 141/98 Weight 125 kg Zoë Ryan APRN.CNP 08/10/2025 9:14 AM Signed [facility] Cortes Aspen is a 55 year old male. Patient presents with: Other: Many symptoms.Tired and no energy. Diarrhea,yellow urine with resent urine test shows microscopic blood. Recently diagnosed with type 2 diabetes. Low testosterone. - Entered by patient Fatigue: States tired, weight loss, dizziness, urine frequency, strong odor x started x 1 year has increased over last 6 months Fatigue The patient is a 55-year-old male with DMII and a remote history of testicular cancer presenting with microscopic hematuria, persistent nausea, and unintentional weight loss. He is accompanied by a strategic business development who provides additional history. The patient reports microscopic hematuria detected on a recent urinalysis. He has a remote history of testicular cancer diagnosed approximately 12-20 years ago, with follow-up tumor markers and imaging for about 10 years after diagnosis. He is not currently under urology or oncology care. He has a CT scan of the urinary bladder scheduled for the , ordered by Dr. Reid, with follow-up blood work on the and an appointment on the . Since May, the patient has experienced persistent nausea described as a constant carsick feeling, with associated dry heaving. He has unintentionally lost over 30 pounds during this period. He also reports dry mouth, increased urinary frequency, and a single episode of hand tremors. He has also experienced episodes of palpitations. He suspects dehydration may be contributing to his symptoms. He was recently diagnosed with DMII with an A1c of 7.0. He is not currently on metformin and is managing his diabetes with diet alone. Review of Systems Constitutional: Positive for malaise/fatigue. Constitutional: (+) unintentional weight loss Ears/Nose/Mouth/Thro at: (+) dry mouth Cardiovascular: (+) palpitations Gastrointestinal: (+) nausea, (+) retching Genitourinary: (+) urinary frequency Musculoskeletal: (-) back pain Neurological: (+) tremor No past medical history on file. No past surgical history on file. ALLERGIES Ibuprofen MEDICATIONS ALPRAZolam (XANAX) 0.5 mg tablet Take 0.5 mg by mouth two times a day. PARoxetine (PAXIL) 10 mg tablet Take 10 mg by mouth once daily. Total of 50 mg TRELEGY ELLIPTA 200-62.5-25 mcg inhalation powder Inhale 1 puff as instructed once daily. cholecalciferol, Vitamin D3, (VITAMIN D3) 1,250 mcg (50,000 unit) cap capsule Take 50,000 Units by mouth once every month. MULTIVITAMIN (MULTIPLE VITAMIN ORAL) Take 1 tablet by mouth once daily. paroxetine hcl(PAXIL 40 MG TAB) Take one(1) tablet daily. acetaminophen (TYLENOL) 325 mg tablet Take 650 mg by mouth every 6 hours as needed. No family history on file. SOCIAL HISTORY[1] Objective BP 141/98 Pulse 99 Temp 36.7 ?C (98 ?F) Resp 18 Wt 125 kg (275 lb 9.2 oz) SpO2 97% BMI 36.36 kg/m? Physical Exam Constitutional: Appearance: Normal appearance. He is normal weight. HENT: Head: Normocephalic and atraumatic. Mouth/Throat: Mouth: Mucous membranes are moist. Pharynx: No oropharyngeal exudate or posterior oropharyngeal erythema. Eyes: Extraocular Movements: Extraocular movements intact. Conjunctiva/sclera: Conjunctivae normal. Pupils: Pupils are equal, round, and reactive to light. Cardiovascular: Rate and Rhythm: Normal rate and regular rhythm. Pulses: Normal pulses. Heart sounds: Normal heart sounds. Pulmonary: Effort: Pulmonary effort is normal. Breath sounds: Normal breath sounds. Abdominal: General: There is no distension. Palpations: There is no mass. Tenderness: There is no abdominal tenderness. There is no right CVA tenderness, left CVA tenderness, guarding or rebound. Hernia: No hernia is present. Neurological: Mental Status: He is alert. { 1. Urinary frequency (R35.0) 2. Microscopic hematuria (R31.29) - Urinalysis negative for nitrites and leukocytes, ruling out UTI; positive for microscopic hematuria and ketones. - CT scan of urinary bladder scheduled for the , ordered by Dr. Reid. - Refer to urology for further evaluation of microscopic hematuria. 3. Type 2 diabetes mellitus without complication, without long-term current use of insulin (HCC) (E11.9) - Recent diagnosis; symptoms of dry mouth, urinary frequency, and fatigue may be related. - Discussed that HbA1c of 7% can often be managed with diet alone, but medication may be considered if symptoms persist. - Advised patient to call Dr. Reid's off (more content not included)... Normal [facility] Basic Metabolic Profile (BMP )on 07-26-2025 BUN/CRE 15.4 RATIO Normal 08-06 [facility] Comment on above: Performed By: #### L 400.2011, L500.2500 ####[facility] [address] [place], [address] Calcium [Mass/Vol] 9.3 mg/dL Normal 7.6-11.0 [facility] Comment on above: Performed By: #### L 400.2010, L500.2500 ####[facility] [address] [place], [address] Chloride [Moles/Vol] 103 mmol/L Normal 98-108 [facility] Comment on above: Performed By: #### L 400.2010, L500.2500 ####[facility] [address] [place], [address] CO2 [Moles/Vol] 26.0 mmol/L Normal 21.0-32.0 [facility] Comment on above: Performed By: #### L 400.2010, L500.2500 ####[facility] [address] [place], [address] Creatinine [Mass/Vol] 0.79 mg/dL Normal 0.70-1.20 [facility] Comment on above: Performed By: #### L 400.2010, L500.2500 ####[facility] [address] [place], [address] GAP 10 Normal 5-15 [facility] Comment on above: Performed By: #### L 400.2010, L500.2500 ####[facility] [address] [place], [address] GFR/1.73 sq M.predicted among non-blacks MDRD (S/P/Bld) [Vol rate/Area] 104 mL/min/{1.73_m2} Normal >60 [facility] Comment on above: Result Comment: mL/m in/1.73m2 CKD-EPI Creatinine Equation (2020) Performed By: #### L 400.2010, L500.2500 ####[facility] [address] [place], [address] Glucose [Mass/Vol] 93 mg/dL Normal 70-99 [facility] Comment on above: Performed By: #### L 400.2010, L500.2500 ####[facility] [address] [place], [address] Potassium [Moles/Vol] 3.7 mmol/L Normal 3.3-5.1 [facility] Comment on above: Performed By: #### L 400.2010, L500.2500 ####[facility] [address] [place], [address] Sodium [Moles/Vol] 139 mmol/L Normal 133-145 [facility] Comment on above: Performed By: #### L 400.2010, L500.2500 ####[facility] [address] [place], [address] Urea nitrogen [Mass/Vol] 12 mg/dL Normal 4-19 [facility] Comment on above: Performed By: #### L 400.2010, L500.2500 ####[facility] [address] [place], [address] Urinalysis, Routine (Dipstic k)on 07-26-2025 BILIRUBIN URINE Negative Normal Negative [facility] Comment on above: Order Comment: Urine , Random Performed By: #### L 400.2010, L500.2500 ####[facility] [address] [place], [address] Clarity (U) Clear Normal Clear [facility] Comment on above: Order Comment: Urine , Random Performed By: #### L 400.2010, L500.2500 ####[facility] [address] [place], [address] Color (U) Yellow Normal Yellow [facility] Comment on above: Order Comment: Urine , Random Performed By: #### L 400.2010, L500.2500 ####[facility] [address] [place], [address] GLUCOSE, UR Normal Normal Normal [facility] Comment on above: Order Comment: Urine , Random Performed By: #### L 400.2010, L500.2500 ####[facility] [address] [place], [address] KETONE UR 5 mg/dl Abnormal Negative [facility] Comment on above: Order Comment: Urine , Random Performed By: #### L 400.2010, L500.2500 ####[facility] [address] [place], [address] LEUK ESTERASE Negative Normal Negative [facility] Comment on above: Order Comment: Urine , Random Performed By: #### L 400.2010, L500.2500 ####[facility] [address] [place], [address] Nitrite Ql (U) Negative Normal Negative [facility] Comment on above: Order Comment: Urine , Random Performed By: #### L 400.2010, L500.2500 ####[facility] [address] [place], [address] OCCULT BLOOD-UR 25 /ul Abnormal Negative [facility] Comment on above: Order Comment: Urine , Random Performed By: #### L 400.2010, L500.2500 ####[facility] [address] [place], [address] pH UR 5.0 Normal 5.0 - 8.0 [facility] Comment on above: Order Comment: Urine , Random Performed By: #### L 400.2010, L500.2500 ####[facility] [address] [place], [address] PROT DIPSTX 30 mg/dl Abnormal Negative [facility] Comment on above: Order Comment: Urine , Random Performed By: #### L 400.2010, L500.2500 ####[facility] [address] [place], [address] SP.GR. DIPSTX 1.025 Normal 1.002-1.030 [facility] Comment on above: Order Comment: Urine , Random Performed By: #### L 400.2010, L500.2500 ####[facility] [address] [place], [place], [address] UROBILI Normal Normal Normal [facility] Comment on above: Order Comment: Urine , Random Performed By: #### L 400.2010, L500.2500 ####[facility] [address] [place], [place], [address] MR/BMS.BPon 07-10-2025 MR/BMS.BP [facility] [address] [facility], [address] [place] [address] OFFICE VISIT Date of Service: 07/10/25 MR#: [id number] Acct: [id number] Name: ALEJANDRA LOUISE Rep #: [id number] : 1970 Provider: Dr. Honorio Bernstein se, DO Age/Sex: 55/M Location: [facility] [place].BP Status: Signed Intake Vital Signs 06/05/25 09:36 07/10/25 06:57 Height 6 ft 2 in 6 ft 2 in Weight: 300 lb 286 lb BMI 38.5 36.7 BP 127/90 H 129/87 H Blood Pressure Location Lt brachial Lt brachial Position Sitting Sitting Respiration 16 16 Pulse 85 65 Pulse Source Monitor Monitor BP Intake Visit Reasons: 4-6wfu Accompanied by: Self Allergies ibuprofen Allergy (Mild, Verified 07/10/25 07:03) facial swelling Medications ???Medication ???Instructions ???Recorded ???Confirmed ???Type paroxetine HCl 40 mg tablet 40 mg PO DAILY 12/19/13 07/10/25 H istory acetaminophen 650 mg 650 mg PO PRN PRN Pain 04/18/19 History tablet,extended release cholecalciferol (vitamin D3) 1,250 1,250 mcg PO QMONTH 11/13/24 History mcg (50,000 unit) capsule fluticasone fur. 100 mcg-umeclid 1 inh inhalation Q24H 06/05/25 History 62.5 mcg-vilant 25 mcg inhalat.powder (Trelegy Ellipta) paroxetine HCl 10 mg tablet 10 mg PO QDAY #30 tabs 06/20/25 Rx alprazolam 0.5 mg tablet 0.5 mg PO BID 30 days #60 tabs 07/10/25 Rx PFSH Medical History (Updated 05/08/25 @ 06:[address] Honorio Orourke, DO) Major depressive disorder LARISSA (generalized anxiety disorder) Panic disorder History of testicular cancer Anxiety Sleep apnea Surgical History History of orchiectomy Family History Sister Asthma Grandfather Diabetes Social History Smoking Status: Current every day smoker HPI History of Present Illness History provided by: patient HPI: Alejandra Louise is a 55 year old male who presents today for follow up evaluation. Patient has lost about 24 lbs overall. Also has completely stopped smoking as of last Wednesday. Still having some cravings but manageable. Did see PCP who found that glucose has been high and testosterone was low. Is set to follow back up with PCP in August. With the increased dose of Paxil, it is hard to notice a significant benefit. Describes himself as blah. Work has been doing largely well. Sleep is ok despite working 3rd shift. Is back on his normal routine. Denies SI/HI or AVH. Continues to take alprazolam without difficulty, and does plan to continue to try and taper further. Has been clenching jaw more in recent past, but is unsure the cause. Review of Systems Constitutional Reports: change in sleep pattern (Secondary to change in routine) Eyes Denies: change in vision or blurry vision Ears, Nose, Mouth, Throat Reports: other (jaw clenching); Denies: throat pain, neck pain or change in hearing Cardiovascular Denies: chest pain, palpitations or dyspnea Respiratory Denies: dyspnea, cough or wheezing Gastrointestinal Denies: abdominal pain, nausea, vomiting, diarrhea or constipation Genitourinary Denies: dysuria or urinary frequency Musculoskeletal Denies: neck pain Integumentary/Breast Denies: rash or new lesions Neurological Denies: headache(s), dizziness or confusion Psychiatric Reports: anxiety, change in sleep pattern and memory loss; Denies: panic attacks Hematologic/Lymphati c Denies: easy bruising or easy bleeding Allergic/Immunologic Denies: wheezing Exam Mental Status Exam - Psych Appearance casually dressed and no apparent distress Attitude cooperative and calm Activity/Motor Behavior MSE activity/motor behavior finding no adventitious movements Speech regular rate, regular volume and regular prosody Mood depressed (stable) Affect constricted Thought Process linear, logical and coherent Thought Content no delusions and no hallucinations Suicidal Ideation none Homicidal Ideation none Attention intact Concentration intact Sensorium/Orientatio n awake, alert and oriented x3 Memory/Cognition other (appropriate for stated age) Insight good Judgement good Assessment Plan Assessment Plan (1) Panic disorder: Plan: - Continue alprazolam as currently prescribed 0.5 mg twice a day (2) LARISSA (generalized anxiety disorder): Plan: - Has increased Paxil to 50 mg; only been about 3 weeks, so will allow some additional time before adjusting (3) Major depressive disorder: Plan: - See above Plan - see above Medications: Refilled alprazolam 0.5 mg PO BID 60 tabs 1RF 30 days Coding Level of Care Code Off vis,est,level 4 (more content not included)... Normal [facility] MR/BMS.BPon 06-05-2025 MR/BMS.BP [facility] [address] [place] [address], [facility] [address] [place] [address] OFFICE VISIT Date of Service: 06/05/25 MR#: [id number] Acct: [id number] Name: ALEJANDRA LOUISE Rep #: [id number] : 1970 Provider: Dr. Honorio Bernstein se, DO Age/Sex: 55/M Location: [facility] [place].BP Status: Signed Intake Vital Signs 05/07/25 06:54 06/05/25 09:36 Height 6 ft 2 in 6 ft 2 in Weight: 306 lb 8 oz 300 lb BMI 39.3 38.5 BP 145/95 H 127/90 H Blood Pressure Location Lt brachial Lt brachial Position Sitting Sitting Respiration 16 16 Pulse 68 85 Pulse Source Monitor Monitor BP Intake Visit Reasons: 1 M FU Accompanied by: Self Allergies ibuprofen Allergy (Mild, Verified 06/05/25 09:41) facial swelling Medications ???Medication ???Instructions ???Recorded ???Confirmed ???Type paroxetine HCl 40 mg tablet 40 mg PO DAILY 12/19/13 06/05/25 H istory acetaminophen 650 mg 650 mg PO PRN PRN Pain 04/18/19 History tablet,extended release cholecalciferol (vitamin D3) 1,250 1,250 mcg PO QMONTH 11/13/24 History mcg (50,000 unit) capsule alprazolam 0.5 mg tablet 0.5 mg PO BID 30 days #60 tabs 06/05/25 Rx fluticasone fur. 100 mcg-umeclid 1 inh inhalation Q24H 06/05/25 History 62.5 mcg-vilant 25 mcg inhalat.powder (Trelegy Ellipta) [facility] Medical History (Updated 05/08/25 @ 06:[address] Honorio Orourke, DO) Major depressive disorder LARISSA (generalized anxiety disorder) Panic disorder History of testicular cancer Anxiety Sleep apnea Surgical History History of orchiectomy Family History Sister Asthma Grandfather Diabetes Social History Smoking Status: Current every day smoker HPI History of Present Illness History provided by: patient HPI: Alejandra Louise is a 55 year old male who presents today for follow up evaluation. Patient reports that he quit Abilify approximately 2 weeks ago and has been doing fairly well since this time. Does admit that he has had some difficulty with sleep but he does attribute part of this being secondary to not having been at work and not being on a regular routine. Has been feeling tired secondary to this poor sleep quality however will be returning to work tonight. Anticipates that this will improve mood and his overall energy levels. Has continued to take alprazolam at the reduced dose however is not further tapered as we were adjusting aripiprazole. Review of Systems Constitutional Reports: change in sleep pattern (Secondary to change in routine) Eyes Denies: change in vision or blurry vision Ears, Nose, Mouth, Throat Denies: throat pain, neck pain or change in hearing Cardiovascular Denies: chest pain, palpitations or dyspnea Respiratory Denies: dyspnea, cough or wheezing Gastrointestinal Denies: abdominal pain, nausea, vomiting, diarrhea or constipation Genitourinary Denies: dysuria or urinary frequency Musculoskeletal Denies: neck pain Integumentary/Breast Denies: rash or new lesions Neurological Denies: headache(s), dizziness or confusion Psychiatric Reports: anxiety, change in sleep pattern and memory loss; Denies: panic attacks Hematologic/Lymphati c Denies: easy bruising or easy bleeding Allergic/Immunologic Denies: wheezing Exam Mental Status Exam - Psych Appearance casually dressed and no apparent distress Attitude cooperative and calm Activity/Motor Behavior MSE activity/motor behavior finding no adventitious movements Speech regular rate, regular volume and regular prosody Mood depressed (But better) Affect constricted Thought Process linear, logical and coherent Thought Content no delusions and no hallucinations Suicidal Ideation none Homicidal Ideation none Attention intact Concentration intact Sensorium/Orientatio n awake, alert and oriented x3 Memory/Cognition other (appropriate for stated age) Insight good Judgement good Assessment Plan Assessment Plan (1) Panic disorder: Plan: - Continue alprazolam as currently prescribed 0.5 mg twice a day ???Discussed further tapering alprazolam however would like to see patient return to work schedule before making any significant medication changes (2) LARISSA (generalized anxiety disorder): Plan: - For the time being continue Paxil as previously prescribed ??? Off of Abibasilio (3) Major depressive disorder: Plan: - See above Plan - see above Coding Level of Care Code Off vis,est,level 4 Diagnoses Panic disorder F41.0 LARISSA (generalized anxiety disorder) F41.1 Major depressive disorder F32.9 06/06/25 0609 Date Honorio (more content not included)... Normal [facility] CBC W/Diff, Automatedon 05-18 Absolute Lymph 2.65 X10 3/uL Normal 0.83-4.51 [facility] Comment on above: Performed By: #### L 501.9910, L500.4050, L100.0100, L500.4100, L509.3001, L501.9985 #### [facility] [address] [place], [address] Absolute Neut 6.4 X10 3/uL Normal 2.0-7.7 [facility] Comment on above: Performed By: #### L 501.9910, L500.4050, L100.0100, L500.4100, L509.3001, L501.9985 #### [facility] [address] [place], [address] Basophils/100 WBC (Bld) 0.8 % Normal 0-1 [facility] Comment on above: Performed By: #### L 501.9910, L500.4050, L100.0100, L500.4100, L509.3001, L501.9985 #### [facility] [address] [place], [address] Eosinophils/100 WBC (Bld) 1.7 % Normal 0-5 [facility] Comment on above: Performed By: #### L 501.9910, L500.4050, L100.0100, L500.4100, L509.3001, L501.9985 #### [facility] [address] [place], [address] Erythrocyte distribution width (RBC) [Ratio] 13.5 % Normal 11.6-14.6 [facility] Comment on above: Performed By: #### L 501.9910, L500.4050, L100.0100, L500.4100, L509.3001, L501.9985 #### [facility] [address] [place], [address] Hematocrit (Bld) [Volume fraction] 49.7 % Normal 40-54 [facility] Comment on above: Performed By: #### L 501.9910, L500.4050, L100.0100, L500.4100, L509.3001, L501.9985 #### [facility] [address] [place], [address] Hemoglobin (Bld) [Mass/Vol] 17.2 g/dL High 13.0-16.5 [facility] Comment on above: Performed By: #### L 501.9910, L500.4050, L100.0100, L500.4100, L509.3001, L501.9985 #### [facility] [address] [place], [address] IG% 0.500 Normal 0.0-0.9 [facility] Comment on above: Result Comment: IG% - Immature Granulocytes (promyelocytes, myelocytes and metamyelocytes) > 1% indicates that a LEFT SHIFT is Present. Performed By: #### L 501.9910, L500.4050, L100.0100, L500.4100, L509.3001, L501.9985 #### [facility] [address] [place], [address] Lymphocytes/100 WBC (Bld) 26.4 % Normal 19-41 [facility] Comment on above: Performed By: #### L 501.9910, L500.4050, L100.0100, L500.4100, L509.3001, L501.9985 #### [facility] [address] [place], [address] MCH (RBC) [Entitic mass] 30.4 pg Normal 27.0-32.0 [facility] Comment on above: Performed By: #### L 501.9910, L500.4050, L100.0100, L500.4100, L509.3001, L501.9985 #### [facility] [address] [place], [address] MCHC (RBC) [Mass/Vol] 34.6 g/dL Normal 32-36 [facility] Comment on above: Performed By: #### L 501.9910, L500.4050, L100.0100, L500.4100, L509.3001, L501.9985 #### [facility] [address] [place], [address] MCV (RBC) [Entitic vol] 88.0 fL Normal 80-94 [facility] Comment on above: Performed By: #### L 501.9910, L500.4050, L100.0100, L500.4100, L509.3001, L501.9985 #### [facility] [address] [place], [address] Monocytes/100 WBC (Bld) 7.4 % Normal 0-10 [facility] Comment on above: Performed By: #### L 501.9910, L500.4050, L100.0100, L500.4100, L509.3001, L501.9985 #### [facility] [address] [place], [address] Neutrophils/100 WBC (Bld) 63.2 % Normal 47-70 [facility] Comment on above: Performed By: #### L 501.9910, L500.4050, L100.0100, L500.4100, L509.3001, L501.9985 #### [facility] [address] [place], [address] Nucleated RBC (Bld) [#/Vol] 0 10*3/uL Normal 0-5 [facility] Comment on above: Performed By: #### L 501.9910, L500.4050, L100.0100, L500.4100, L509.3001, L501.9985 #### [facility] [address] [place], [address] Platelet mean volume (Bld) [Entitic vol] 10.4 fL Normal 6.2-12.0 [facility] Comment on above: Performed By: #### L 501.9910, L500.4050, L100.0100, L500.4100, L509.3001, L501.9985 #### [facility] [address] [place], [address] Platelets (Bld) [#/Vol] 297 10*3/uL Normal 150-450 [facility] Comment on above: Performed By: #### L 501.9910, L500.4050, L100.0100, L500.4100, L509.3001, L501.9985 #### [facility] [address] [place], [address] RBC (Bld) [#/Vol] 5.65 10*6/uL Normal 4.6-6.2 [facility] Comment on above: Performed By: #### L 501.9910, L500.4050, L100.0100, L500.4100, L509.3001, L501.9985 #### [facility] [address] [place], [address] RDW SD 43.3 fl Normal 35.1-43.9 [facility] Comment on above: Performed By: #### L 501.9910, L500.4050, L100.0100, L500.4100, L509.3001, L501.9985 #### [facility] [address] [place], [address] WBC (Bld) [#/Vol] 10.1 10*3/uL Normal 4.4-11.0 [facility] Comment on above: Performed By: #### L 501.9910, L500.4050, L100.0100, L500.4100, L509.3001, L501.9985 #### [facility] [address] [place], [address] Comprehensive Metabolic Prof ilon 06-04-2025 BUN/CRE 15.5 RATIO Normal 10-20 [facility] Comment on above: Result Comment: AMENDED REPORT 06/04/25 1200 BUN/CRE previously reported as: 15.5 RATIO Performed By: #### L 501.9910, L500.4050, L100.0100, L500.4100, L509.3001, L501.9985 #### [facility] [address] [place], [address] Urea nitrogen [Mass/Vol] 15 mg/dL Normal 4-19 [facility] Comment on above: Performed By: #### L 501.9910, L500.4050, L100.0100, L500.4100, L509.3001, L501.9985 #### [facility] [address] [place], [address] Hemoglobin A1con 06-04-2025 HbA1c (Bld) [Mass fraction] 7.0 % High <=5.6 [facility] Comment on above: Order Comment: CORINA Mello ADD ON FROM TODAY. H122. Result Comment: Norm al < 5.7 % Prediabetic 5.7 - 6.4 % Diabetic >or= 6.5 % Please note range changes. Performed By: #### L 501.9910, L500.4050, L100.0100, L500.4100, L509.3001, L501.9985 #### [facility] [address] [place], [address] L509.3001on 06-04-2025 Testosterone [Mass/Vol] 214.00 ng/dL Low 300-890 [facility] Comment on above: Performed By: #### L 501.9910, L500.4050, L100.0100, L500.4100, L509.3001, L501.9985 #### [facility] [address] [place], [address] Lipid Profileon 06-04-2025 CHOL:HDL 4.62 Normal [facility] Comment on above: Performed By: #### L 501.9910, L500.4050, L100.0100, L500.4100, L509.3001, L501.9985 #### [facility] [address] [place], [address] Cholesterol [Mass/Vol] 207 mg/dL High <=200 [facility] Comment on above: Result Comment: Chol esterol level, Desirable <200 mg/dL Borderline high cholesterol 200-239 mg/dL High cholesterol >=240 mg/dL Recommendations of the NCEP Adult Treatment Panel for the following risk-cutoff thresholds for the [place] population. Performed By: #### L 501.9910, L500.4050, L100.0100, L500.4100, L509.3001, L501.9985 #### [facility] [address] [place], [address] Cholesterol in HDL [Mass/Vol] 45 mg/dL Normal [facility] Comment on above: Result Comment: Cecile onal Cholesterol Education Program (NCEP) guidelines: <40 mg/dL: Low HDL-cholesterol (major risk factor for CHD) >= 60 mg/dL: High HDL-cholesterol (negative risk factor for CHD) HDL-cholesterol is affected by a number of factors, e.g. smoking, exercise, hormones, sex and age. Performed By: #### L 501.9910, L500.4050, L100.0100, L500.4100, L509.3001, L501.9985 #### [facility] [address] [place], [address] Cholesterol in LDL [Mass/Vol] 137 mg/dL Normal [facility] Comment on above: Result Comment: Bord orwfka=601-621 mg/dL Higher Iiwz=504 mg/dL or greater Friedwald Equation for LDL-C Performed By: #### L 501.9910, L500.4050, L100.0100, L500.4100, L509.3001, L501.9985 #### [facility] [address] [place], [address] Cholesterol in VLDL [Mass/Vol] 25 mg/dL Normal 5-40 [facility] Comment on above: Performed By: #### L 501.9910, L500.4050, L100.0100, L500.4100, L509.3001, L501.9985 #### [facility] [address] [place], [address] Triglyceride [Mass/Vol] 125 mg/dL Normal [facility] Comment on above: Result Comment: The drugs N-Acetylcysteine and Metamizole may falsely depress this assay. Normal range: <150 mg/dL Borderline High: 150-199 mg/dL High: 200-499 mg/dL Very High: >500 mg/dL Performed By: #### L 501.9910, L500.4050, L100.0100, L500.4100, L509.3001, L501.9985 #### [facility] [address] [place], [address] PSA,Total - Annual Screenon 06-04-2025 PSA,TOT SCREEN 0.92 ng/mL Normal 0.02-4.00 [facility] Comment on above: Result Comment: This test was performed using the [employer] tPSA method. Measured values of a patient??sample can vary depending on the testing procedure used. PSA values determined on patient samples by different testing procedures cannot be used interchangeably. If there is a change in PSA assays while monitoring therapy, sequential testing should be performed to confirm baseline values. Performed By: #### L 501.9910, L500.4050, L100.0100, L500.4100, L509.3001, L501.9985 #### [facility] [address] [place], [address] MR/BMS.BPon 05-07-2025 MR/BMS.BP [place] [id number] [facility], [address] [place], [place] [address] OFFICE VISIT Date of Service: 05/07/25 MR#: [id number] Acct: [id number] Name: ALEJANDRA LOUISE Rep #: [id number] : 1970 Provider: Dr. Honorio Bernstein se, DO Age/Sex: 55/M Location: [facility] [place].BP Status: Signed with Addenda ADDENDUM by Dr. Honorio Orourke DO on 05/08/25 at 0656 Assessment Plan (1) Major depressive disorder: PLAN: - reducing abilify, could consider alternative treatment in near future once discontinued. 05/08/25 0656 Date Honorio Orourke DO cc: * Signed Intake Vital Signs 03/07/25 06:52 05/07/25 06:54 Height 6 ft 2 in 6 ft 2 in Weight: 306 lb 306 lb 8 oz BMI 39.2 39.3 BP 156/103 H 145/95 H Blood Pressure Location Lt brachial Lt brachial Position Sitting Sitting Respiration 16 16 Pulse 81 68 Pulse Source Monitor Monitor BP Intake Visit Reasons: 2 M FU Allergies ibuprofen Allergy (Mild, Verified 05/07/25 06:57) facial swelling Medications ???Medication ???Instructions ???Recorded ???Confirmed ???Type paroxetine HCl 40 mg tablet 40 mg PO DAILY 12/19/13 05/07/25 H istory acetaminophen 650 mg 650 mg PO PRN PRN Pain 04/18/19 History tablet,extended release aripiprazole 2 mg tablet mg PO DAILY 11/13/24 05/07/25 Hist ory cholecalciferol (vitamin D3) 1,250 1,250 mcg PO QMONTH 11/13/24 History mcg (50,000 unit) capsule alprazolam 0.5 mg tablet 0.5 mg PO BID 30 days #60 tabs 05/07/25 Rx PFSH Medical History LARISSA (generalized anxiety disorder) Panic disorder History of testicular cancer Anxiety Sleep apnea Surgical History History of orchiectomy Family History Sister Asthma Grandfather Diabetes Social History Smoking Status: Current every day smoker HPI History of Present Illness History provided by: patient HPI: Alejanrda Louise is a 55 year old male who presents today for follow up evaluation. Does present today with his . Patient reports that he has been doing well with taper of alprazolam to this point, but has been having more depression. This has been prevalent for about the past 4-5 years however believes he has likely been under reporting symptoms at appointments. Has been missing more days of work recently, and is essentially pointed out if he misses another day. Spends most of the day playing video games with poor motivation. Also has gained 50 lbs since the beginning of taking aripiprazole. is very concerned about mood symptoms. Describes mood right now as blah, and anxious. Finds that it is hard for him to get out of bed and get motivated. Denies SI HI or AVH. Review of Systems Constitutional Reports: change in sleep pattern Eyes Denies: change in vision or blurry vision Ears, Nose, Mouth, Throat Denies: throat pain, neck pain or change in hearing Cardiovascular Denies: chest pain, palpitations or dyspnea Respiratory Denies: dyspnea, cough or wheezing Gastrointestinal Denies: abdominal pain, nausea, vomiting, diarrhea or constipation Genitourinary Denies: dysuria or urinary frequency Musculoskeletal Denies: neck pain Integumentary/Breast Denies: rash or new lesions Neurological Denies: headache(s), dizziness or confusion Psychiatric Reports: anxiety, change in sleep pattern and memory loss; Denies: panic attacks Hematologic/Lymphati c Denies: easy bruising or easy bleeding Allergic/Immunologic Denies: wheezing Exam Mental Status Exam - Psych Appearance casually dressed and no apparent distress Attitude cooperative and calm Activity/Motor Behavior MSE activity/motor behavior finding no adventitious movements Speech regular rate, regular volume and regular prosody Mood depressed Affect restricted Thought Process linear, logical and coherent Thought Content no delusions and no hallucinations Suicidal Ideation none Homicidal Ideation none Attention intact Concentration intact Sensorium/Orientatio n awake, alert and oriented x3 Memory/Cognition other (appropriate for stated age) Insight good Judgement good Assessment Plan Assessment Plan (1) Panic disorder: Plan: - Continue alprazolam as currently prescribed 0.5 mg twice a day ??? We will hold off on further alprazolam taper while adjusting aripiprazole (2) LARISSA (generalized anxiety disorder): Plan: - For the time being continue Paxil as previously prescribed ??? Reduce Abilify to 1 mg every day for 2 weeks and then discontinue Plan - see above Coding Level of Care Code Off v (more content not included)... Normal [facility] MR/BMS.BPon 03-07-2025 MR/BMS.BP [facility] [address] [facility] [address], [address] [place] [address] OFFICE VISIT Date of Service: 03/07/25 MR#: [id number] Acct: [id number] Name: ALEJANDRA LOUISE Rep #: [id number] : 1970 Provider: Dr. Honorio Bernstein se, DO Age/Sex: 55/M Location: [facility] [place].BP Status: Signed Intake Vital Signs 12/28/24 06:51 03/07/25 06:52 Height 6 ft 2 in 6 ft 2 in Weight: 306 lb BMI 39.2 BP 158/86 H 156/103 H Blood Pressure Location Rt brachial Lt brachial Position Sitting Sitting Respiration 16 16 Pulse 61 81 Pulse Source Monitor Monitor BP Intake Visit Reasons: 2mfu Accompanied by: Self Allergies ibuprofen Allergy (Mild, Verified 03/07/25 06:56) facial swelling Medications ???Medication ???Instructions ???Recorded ???Confirmed ???Type paroxetine HCl 40 mg tablet 40 mg PO DAILY 12/19/13 03/07/25 H istory acetaminophen 650 mg 650 mg PO PRN PRN Pain 04/18/19 History tablet,extended release aripiprazole 2 mg tablet mg PO DAILY 11/13/24 03/07/25 Hist ory cholecalciferol (vitamin D3) 1,250 1,250 mcg PO QMONTH 11/13/24 History mcg (50,000 unit) capsule alprazolam 0.5 mg tablet 0.5 mg PO BID 30 days #60 tabs 03/07/25 Rx PFSH Medical History (Updated 11/13/24 @ 07:[address] Honorio Orourke DO) LARISSA (generalized anxiety disorder) Panic disorder History of testicular cancer Anxiety Sleep apnea Surgical History (Updated 03/28/19 @ 15:34 by Zayra Salter) History of orchiectomy Family History (Updated 03/28/19 @ 15:34 by Zayra Salter) Sister Asthma Grandfather Diabetes Social History (Updated 03/28/19 @ 15:[address] Garcia Gerard MD) Smoking Status: Current every day smoker HPI History of Present Illness History provided by: patient Chief complaint: xanax taper HPI: Alejandra Louise is a 55 year old male who presents today for follow up evaluation. Feels like he has been tolerating the tapering dose of alprazolam to this point. No significant withdrawal symptoms. Work has been doing largely well. Sleep has been fair. Will usually sleep about 4 hours then wake up for a few hours, then get back to sleep for another 4 hours. Energy has been fair, but is able to do the things he needs to do. Continues to take paroxetine and aripiprazole regularly and tolerating well. Denies SI/HI or AVH. Review of Systems Constitutional Reports: fatigue and change in sleep pattern Eyes Denies: change in vision or blurry vision Ears, Nose, Mouth, Throat Denies: throat pain, neck pain or change in hearing Cardiovascular Denies: chest pain, palpitations or dyspnea Respiratory Denies: dyspnea, cough or wheezing Gastrointestinal Denies: abdominal pain, nausea, vomiting, diarrhea or constipation Genitourinary Denies: dysuria or urinary frequency Musculoskeletal Denies: neck pain Integumentary/Breast Denies: rash or new lesions Neurological Denies: headache(s), dizziness or confusion Psychiatric Reports: anxiety, panic attacks, change in sleep pattern and memory loss Endocrine Reports: fatigue Hematologic/Lymphati c Denies: easy bruising or easy bleeding Allergic/Immunologic Denies: wheezing Exam Mental Status Exam - Psych Appearance casually dressed and no apparent distress Attitude cooperative and calm Activity/Motor Behavior MSE activity/motor behavior finding no adventitious movements Speech regular rate, regular volume and regular prosody Mood OK Affect congruent Thought Process linear, logical and coherent Thought Content no delusions and no hallucinations Suicidal Ideation none Homicidal Ideation none Attention intact Concentration intact Sensorium/Orientatio n awake, alert and oriented x3 Memory/Cognition other (appropriate for stated age) Insight good Judgement good Exam Constitutional Documenting provider has reviewed patient's vital signs: yes Common normals: no acute distress, patient oriented x3 and alert General appearance: well developed Neuro Common normals: patient oriented x3 Sensorium/orientatio n: alert Gait (neuro): normal gait Assessment Plan Assessment Plan (1) Panic disorder: Plan: - Will reduce to 0.5 mg BID on even days and 0.5 mg TID on odd days to continue with benzodiazepine taper. Will update in a month and then consider further taper to 0.5 mg BID of alprazolam. -Has been tolerating taper very well to this point (2) LARISSA (generalized anxiety disorder): Plan: - Continue paxil and abilify as before - largely doing well in regards to mood symptoms Plan - see above Medications: Changed From alprazolam 0.5 mg PO TID 30 days 90 tabs 1RF To alprazolam 0.5 mg PO BID 30 days 60 tabs 1RF Coding Level of Care Code Off vis,est,level 4 Diagnoses Panic di (more content not included)... Normal [facility] Low Dose CT Lung Screeningon 01-09-[address] Lung Screening [facility] Services [address] [place] [id number] Lung Screening MR#: [id number] Acct: [id number] Name: ALEJANDRA LOUISE Rep #: [id number] : 1970 M 54 From: Stone Castillo MD PCP: Dr. Stone Reid DO Status: [facility] Study: Low Dose CT Lung Screening Date of Exam: 01/09 Exam# [id number] Ordering Dr: Stone Reid DO EXAM: CT Chest, Lung Cancer Screening Without Intravenous Contrast CLINICAL INDICATION: SCREENING, SMOKER TECHNIQUE: Axial computed tomography images of the chest without intravenous contrast using low dose (LDCT) lung cancer screening protocol. This CT exam was performed using one or more of the following dose reduction techniques: automated exposure control, adjustment of the mA and/or kV according to patient size, and/or use of iterative reconstruction technique. COMPARISON: CT Lung Cancer Screening dated 06/28/2023 FINDINGS: LUNGS AND PLEURAL SPACES: Lung emphysema. Lingular atelectasis or scarring. No pneumothorax. No significant effusion. No new suspicious pulmonary nodules. HEART: Unremarkable. No cardiomegaly. No significant pericardial effusion. No significant coronary artery calcifications. BONES/JOINTS: Unremarkable. No acute fracture. No dislocation. SOFT TISSUES: Unremarkable. VASCULATURE: Unremarkable. No thoracic aortic aneurysm. LYMPH NODES: Unremarkable. No enlarged lymph nodes. CT/Low Dose CT Lung Screening IMPRESSION: 1. No new suspicious pulmonary nodules. 2. LUNG-RADS 1: Continue low-dose CT screening of the chest in 12 months is recommended. Reading Location: [facility] CC: Dr. Stone Reid, Service Restorer Emergency: Signed Normal [facility] MR/BMS.BPon 12-28-2024 MR/BMS.BP [place] [id number] [facility], [address] [place] [address] OFFICE VISIT Date of Service: 12/28/24 MR#: [id number] Acct: [id number] Name: ALEJANDRA LOUISE Rep #: [id number] : 1970 Provider: Dr. Honorio Bernstein se, DO Age/Sex: 54/M Location: BMS.BP Status: Signed Intake Vital Signs 11/13/24 06:51 12/28/24 06:51 Height 6 ft 2 in 6 ft 2 in Weight: 299 lb BMI 38.4 BP 148/90 H 158/86 H Blood Pressure Location Lt brachial Rt brachial Position Sitting Sitting Respiration 16 16 Pulse 62 61 Pulse Source Monitor Monitor BP Intake Visit Reasons: 6 WK FU Accompanied by: Self Allergies ibuprofen Allergy (Mild, Verified 12/28/24 06:52) facial swelling Medications ???Medication ???Instructions ???Recorded ???Confirmed ???Type paroxetine HCl 40 mg tablet 40 mg PO DAILY 12/19/13 12/28/24 H istory acetaminophen 650 mg 650 mg PO PRN PRN Pain 04/18/19 History tablet,extended release aripiprazole 2 mg tablet mg PO DAILY 11/13/24 12/28/24 Hist ory cholecalciferol (vitamin D3) 1,250 1,250 mcg PO QMONTH 11/13/24 History mcg (50,000 unit) capsule alprazolam 0.5 mg tablet 0.5 mg PO TID 30 days #90 tabs 12/28/24 Rx PFSH Medical History (Updated 11/13/24 @ 07:[address] Honorio Orourke, DO) LARISSA (generalized anxiety disorder) Panic disorder History of testicular cancer Anxiety Sleep apnea Surgical History (Updated 03/28/19 @ 15:34 by Zayra Salter) History of orchiectomy Family History (Updated 03/28/19 @ 15:34 by Zayra Salter) Sister Asthma Grandfather Diabetes Social History (Updated 03/28/19 @ 15:[address] Garcia Gerard MD) Smoking Status: Current every day smoker HPI History of Present Illness History provided by: patient HPI: Alejandra Louise is a 54 year old male who presents today for follow up evaluation. Has been doing largely well with the reduction of alprazolam to this point. Was initially a little worried that he would notice worsening symptoms but things remained stable. Mood overall has been largely well. Life stress has been largely stable. Sleep has been stable. Denies SI/HI or AVH. Review of Systems Constitutional Reports: fatigue and change in sleep pattern Eyes Denies: change in vision or blurry vision Ears, Nose, Mouth, Throat Denies: throat pain, neck pain or change in hearing Cardiovascular Denies: chest pain, palpitations or dyspnea Respiratory Denies: dyspnea, cough or wheezing Gastrointestinal Denies: abdominal pain, nausea, vomiting, diarrhea or constipation Genitourinary Denies: dysuria or urinary frequency Musculoskeletal Reports: back pain; Denies: neck pain Integumentary/Breast Denies: rash or new lesions Neurological Denies: headache(s), dizziness or confusion Psychiatric Reports: anxiety, panic attacks, change in sleep pattern and memory loss Endocrine Reports: fatigue Hematologic/Lymphati c Denies: easy bruising or easy bleeding Allergic/Immunologic Denies: wheezing Exam Mental Status Exam - Psych Appearance casually dressed and no apparent distress Attitude cooperative and calm Activity/Motor Behavior MSE activity/motor behavior finding no adventitious movements Speech regular rate, regular volume and regular prosody Mood OK Affect congruent Thought Process linear, logical and coherent Thought Content no delusions and no hallucinations Suicidal Ideation none Homicidal Ideation none Attention intact Concentration intact Sensorium/Orientatio n awake, alert and oriented x3 Memory/Cognition other (appropriate for stated age) Insight good Judgement good Exam Constitutional Documenting provider has reviewed patient's vital signs: yes Common normals: no acute distress, patient oriented x3 and alert General appearance: well developed Neuro Common normals: patient oriented x3 Sensorium/orientatio n: alert Gait (neuro): normal gait Assessment Plan Assessment Plan (1) Panic disorder: Plan: - We will continue benzodiazepine taper to alprazolam 0.5 mg 3 times a day -Has been tolerating taper very well to this point (2) LARISSA (generalized anxiety disorder): Plan: - Continue paxil and abilify as before - largely doing well in regards to mood symptoms Medications: Changed From alprazolam 0.5 - 1 mg (1 - 2 x 0.5 mg) PO BID 30 days 105 tabs 1RF To alprazolam 0.5 mg PO TID 90 tabs 1RF 30 days Coding Level of Care Code Off vis,est,level 4 Diagnoses Panic disorder F41.0 LARISSA (generalized anxiety disorder) F41.1 01/01/25 0612 Date Honorio Palomo Signature: Date (if applicable) CC: Normal [facility] MR/BMS.BPon 11-13-2024 MR/BMS.BP [facility] [address] [place] [address], [address] [place] [address] OFFICE VISIT Date of Service: 11/13/24 MR#: [id number] Acct: [id number] Name: ALEJANDRA LOUISE Rep #: [id number] : 1970 Provider: Dr. Honorio Bernstein se, DO Age/Sex: 54/M Location: [facility] [place].BP Status: Signed Intake Vital Signs 04/21/19 07:18 11/13/24 06:51 Height 6 ft 2 in 6 ft 2 in Weight: 299 lb BMI 38.4 BP 148/90 H Blood Pressure Location Lt brachial Position Sitting Respiration 16 Pulse 62 Pulse Source Monitor BP Intake Visit Reasons: Est Care/ Anxiety Accompanied by: Self Allergies ibuprofen Allergy (Mild, Verified 11/13/24 06:54) facial swelling Medications ???Medication ???Instructions ???Recorded ???Confirmed ???Type paroxetine HCl 40 mg tablet 40 mg PO DAILY 12/19/13 11/13/24 History acetaminophen 650 mg 650 mg PO PRN PRN Pain 04/18/19 11/13/24 History tablet,extended release alprazolam 0.5 mg tablet 0.5 - 1 mg (1 - 2 x 0.5 mg) PO BID 11/13/24 11/13/24 Rx 30 days #105 tabs aripiprazole 2 mg tablet mg PO DAILY 11/13/24 11/13/24 History cholecalciferol (vitamin D3) 1,250 1,250 mcg PO QMONTH 11/13/24 11/13/24 History mcg (50,000 unit) capsule PFS Medical History (Updated 11/13/24 @ 07:[address] Honorio Orourke, DO) LARISSA (generalized anxiety disorder) Panic disorder History of testicular cancer Anxiety Sleep apnea Surgical History (Updated 03/28/19 @ 15:34 by Zayra Salter) History of orchiectomy Family History (Updated 03/28/19 @ 15:34 by Zayra Salter) Sister Asthma Grandfather Diabetes Social History (Updated 03/28/19 @ 15:[address] Garcia Gerard MD) Smoking Status: Current every day smoker HPI History of Present Illness History provided by: patient Chief complaint: anxiety HPI: Alejandra Louise is a 54 year old male who presents today for new patient evaluation. Patient comes as a referral from his PCP Dr. Reid. Has been taking alprazolam for about the last 7 years. Reports that he knows that it works, but is interested in possibly reducing use or finding alternatives. Had been taking aripiprazole and stopped taking cold turkey around 3 months ago and noticed that he had much worse anxiety and so restarted. Was feeling very emotional and the worse I have ever felt. Also doubled his alprazolam around this time when restarting. Does not take as needed and more so takes scheduled. Also has been taking paroxetine for about the last 20 years ago. Has panic attacks starting about 20 years ago. [place] that he was having a heart attack and shortness of breath. Increased in frequency and then eventually started medication. Last had a panic attack about 3 months ago. Is largely able to control them and make them go away fairly quickly. Was having some depressive symptoms before taking aripiprazole, but this has leveled off. Did have to take about 5 days off in the fall related to anxiety when switching aripiprazole. Sleep: works third shift, gets 7 hours on average Interest: is able to find krzysztof in things Guilt: some intermittent guilt Energy: low Concentration: fair to good Appetite: increased, maybe 50 lbs since started aripiprazole but has been less active Psychomotor: WNL Suicide: denies current or remote Memory: feels somewhat forgetful short term, halfway is fine Anxiety: see above Obsessions: denies Compulsions: denies Bob: denies symptoms of bob PTSD: denies Psychosis: denies history of auditory or visual hallucinations, denies disorganized thoughts, denies disorganized speech Developmental History Developmental History: Siblings - 2 sisters Born/Raised - [place], [place] Education - high school graduate Living Situation - lives with Legal Issues - denies 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 Psychiatric History Previous psychiatric treatment history: Yes (72 hours about 10 years ago) Previous psychiatric diagnoses: anxiety, depression Previous psychiatric treatment programs: none Family Psychiatric History: Mother - unclear mental disorder Suicidal Ideation Current: No Past: No History of suicide attempt: No Suicide Risk Assessment Suicide risk factors: depression and substance misuse (history of) Suicide protective factors: connected to treatment, future looking, family support and social support Self Injurious Behavior Current: none Past: none Medication Trials Previous psychiatric medication trials: possibly lorazepam Current/Previous Provider Psychiatrist: denies Therapist: denies Other Substance Use History Nicotine- 1 ppd for the last 30 years Alcohol- admits to formerly abusing alcohol; doesn't drink at all anymore, quit 8 years ago; was drinking 20-30 beers per day Marijuana- denies Stimulants- denies (more content not included)... Normal [facility] Absolute lymphocyte countOrd ered By: Stone Reid on 05-20-2023 Lymphocytes Auto (Unsp spec) [#/Vol] 2.67 10*3/uL 0.83-4.51 [facility] Basophil percentageOrdered B y: Stone Reid on 05-20-2023 Basophils/100 WBC (Bld) 0.9 % 0-1 [facility] Bilirubin [Mass/Vol] 0.40 mg/dL 0.20-1.00 [facility] Comment on above: For patients on eltr ombopag therapy, use of Dimension Girard TBIL is not recommended. Chloride [Moles/Vol] 105 mmol/L 98-107 [facility] Cholesterol [Mass/Vol] 195 mg/dL <200 [facility] Comment on above: <200 mg/dL Desirable 200-240 mg/dL Borderline >240 mg/dL High Risk Eosinophils/100 WBC (Bld) 3.4 % 0-5 [facility] Glucose [Mass/Vol] 81 mg/dL 74-106 [facility] Neutrophils (Bld) [#/Vol] 4.0 10*3/uL 2.0-7.7 [facility] Neutrophils/100 WBC (Bld) 52.3 % 47-70 [facility] Potassium [Moles/Vol] 3.9 mmol/L 3.5-5.1 [facility] Protein [Mass/Vol] 7.5 g/dL 6.4-8.2 [facility] Sodium [Moles/Vol] 138 mmol/L 136-145 [facility] Testosterone [Mass/Vol] 384.30 ng/dL [facility] Comment on above: CENTRAL 90% REFERENC E RANGES MALE AGE <50 197.44 - 669.58 ng/dL MALE AGE > or = 50 187.72 - 684.19 ng/dL FEMALE AGE <50 8.38 - 35.01 ng/dL FEMALE AGE > or = 50 <7.00 - 35.92 ng/dL Effective as of 05/13/21 Triglyceride [Mass/Vol] 154 mg/dL <199 [facility] Comment on above: The drugs N-Acetylcy steine and Metamizole may falsely depress this assay.Serum Triglycerides Reference Interval Normal <150 mg/dL Borderline high 150 - 199 mg/dL High 200 - 499 mg/dL Very High > or = 500 mg/dL WBC (Bld) [#/Vol] 7.6 10*3/uL 4.4-11.0 [facility] Blood erythrocytes count (nu mber/volume)Ordered By: Stone Reid on 05-20-2023 RBC (Bld) [#/Vol] 5.45 10*6/uL 4.6-6.2 [facility] Blood hemoglobin measurement (mass/volume)Ordered By: Stone Reid on 05-20-2023 Hemoglobin (Bld) [Mass/Vol] 16.3 g/dL 13.0-16.5 [facility] Blood lymphocytes/100 leukoc ytesOrdered By: Stone Reid on 05-20-2023 Lymphocytes/100 WBC (Bld) 35.2 % 19-41 [facility] Blood monocytes/100 leukocyt esOrdered By: Stone Reid on 05-20-2023 Monocytes/100 WBC (Bld) 7.9 % 0-10 [facility] Blood platelet mean volumeOr dered By: Stone Reid on 05-20-2023 Platelet mean volume (Bld) [Entitic vol] 11.1 fL 6.2-12.0 [facility] Determination of erythrocyte mean corpuscular volume (MCV)Ordered By: Stone Reid on 05-20-2023 MCV (RBC) [Entitic vol] 88.3 fL 80-94 [facility] Hematocrit Auto (Bld) [Volum e fraction]Ordered By: Stone Reid on 05-20-2023 Hematocrit (Bld) [Volume fraction] 48.1 % 40-54 [facility] Laboratory - Chemistry and C hemistry - challengeOrdered By: Stone Reid on 05-20-2023 ALP [Catalytic activity/Vol] 55 U/L 45-117 [facility] ALT [Catalytic activity/Vol] 36 U/L 16-61 [facility] CO2 [Moles/Vol] 27.0 mmol/L 21.0-32.0 [facility] Globulin (S) [Mass/Vol] 3.8 g/dL 2.2-4.2 [facility] Urea nitrogen/Creatinine [Mass ratio] 15.4 mg/mg 10-20 [facility] Laboratory - Hematology and Cell countsOrdered By: Stone Reid on 05-20-2023 Erythrocyte distribution width (RBC) [Entitic vol] 43.4 fL 35.1-43.9 [facility] Erythrocyte distribution width (RBC) [Ratio] 13.4 % 11.6-14.6 [facility] Immature granulocytes/100 WBC (Bld) 0.300 % 0.0-0.9 [facility] Comment on above: IG% - Immature Granu locytes (promyelocytes, myelocytes and metamyelocytes) > 1% indicates that a LEFT SHIFT is Present. MCH (RBC) [Entitic mass] 29.9 pg 27.0-32.0 [facility] Nucleated RBC/100 WBC (Bld) [Ratio] 0 % 0-5 [facility] MCHC Auto (RBC) [Mass/Vol]Or dered By: Stone Reid on 05-20-2023 MCHC (RBC) [Mass/Vol] 33.9 g/dL 32-36 [facility] No Panel InformationOrdered By: Stone Reid on 05-20-2023 Estimated GFR (MDRD) Amer 121 mL/min >60 [facility] Comment on above: GFR Calc Estimated GFR (MDRD) Non-Af Amer 100 mL/min >60 [facility] Comment on above: Non- GFR Calc Prostate Specific Antigen Screen 1.12 ng/mL 0.00-4.00 [facility] Comment on above: This test was perfor med using the TPSA assay method for the[employer] chemistry system. Values obtained with differentassay methods cannot be used interchangably.When changing PSA assays in the course of monitoring apatient, additional sequential testing should be carriedout to confirm baseline values. Platelets bldOrdered By: Aria Reid on 05-20-2023 Platelets (Bld) [#/Vol] 261 10*3/uL 150-450 [facility] Serum or plasma albumin ashley urement (mass/volume)Ordered By: Stone Reid on 05-20-2023 Albumin [Mass/Vol] 3.7 g/dL 3.2-5.0 [facility] Serum or plasma albumin/glob ulin mass ratioOrdered By: Stone Reid on 05-20-2023 Albumin/Globulin [Mass ratio] 1.0 {ratio} 0.9-2.4 [facility] Serum or plasma calcium ashley urement (mass/volume)Ordered By: Stone Reid on 05-20-2023 Calcium [Mass/Vol] 8.8 mg/dL 8.5-10.1 [facility] Serum or plasma cholesterol in HDL measurement (mass/volume)Ordered By: Stone Reid on 05-20-2023 Cholesterol in HDL [Mass/Vol] 39 mg/dL >40 [facility] Comment on above: The drugs N-Acetylcy steine and Metamizole may falsely depress this assay. Reference Range HDL <40 mg/dL Low HDL Cholesterol HDL >or= 60 mg/dL High HDL Cholesterol Serum or plasma cholesterol in VLDL measurement (mass/volume)Ordered By: Stone Reid on 05-20-2023 Cholesterol in VLDL [Mass/Vol] 31 mg/dL 5-40 [facility] Serum or plasma creatinine m easurement (mass/volume)Ordered By: Stone Reid on 05-20-2023 Creatinine [Mass/Vol] 0.85 mg/dL 0.70-1.30 [facility] Comment on above: The validity of the calculated GFR & GFRAA in patients over 70 years has not been determined. Clinical correlation is essential. Serum or plasma low density lipoprotein (LDL) cholesterol measurement (mass/volume)Ordered By: Stone Reid on 05-20-2023 Cholesterol in LDL [Mass/Vol] 125 mg/dL 0-130 [facility] Serum or plasma urea nitroge n measurement (mass/volume)Ordered By: Stone Reid on 05-20-2023 Urea nitrogen [Mass/Vol] 13 mg/dL 7-18 [facility] Thin prep Papanicolaou smear with manual screeningOrdered By: Stone Reid on 05-20-2023 Thin prep Papanicolaou smear with manual screening 20 U/L 15-37 [facility] Thin prep Papanicolaou smear with manual screening 6 5-15 [facility] No Panel Informationon 06-05 Vitamin D 25-Hydroxy 16.1 ng/mL [facility] Work Phone: Comment on above: Vitamin D 25(OH) Sta tus Range Deficiency <20 ng/mL (50nmol/L) Insufficiency 20 - 30 ng/mL (50 - 75 nmol/L) Sufficiency 30 - 100 ng/mL (75 - 250 nmol/L) Toxicity >100 ng/mL (>250 nmol/L) Absolute lymphocyte counton 03-03-2022 Lymphocytes Auto (Unsp spec) [#/Vol] 2.11 10*3/uL 0.83-4.51 [facility] Work Phone: Basophil percentageon 2021 Basophils/100 WBC (Bld) 0.9 % 0-1 [facility] Work Phone: Bilirubin [Mass/Vol] 0.40 mg/dL 0.20-1.00 [facility] Work Phone: [phone] Comment on above: For patients on eltr ombopag therapy, use of Dimension Girard TBIL is not recommended. Chloride [Moles/Vol] 107 mmol/L 98-107 [facility] Work Phone: Cholesterol [Mass/Vol] 203 mg/dL <200 [facility] Work Phone: Comment on above: <200 mg/dL Desirable 200-240 mg/dL Borderline >240 mg/dL High Risk Eosinophils/100 WBC (Bld) 3.5 % 0-5 [facility] Work Phone: Glucose [Mass/Vol] 98 mg/dL 74-106 [facility] Work Phone: Neutrophils (Bld) [#/Vol] 3.8 10*3/uL 2.0-7.7 [facility] Work Phone: Neutrophils/100 WBC (Bld) 56.5 % 47-70 [facility] Work Phone: Potassium [Moles/Vol] 4.0 mmol/L 3.5-5.1 [facility] Work Phone: Protein [Mass/Vol] 7.3 g/dL 6.4-8.2 [facility] Work Phone: Sodium [Moles/Vol] 140 mmol/L 136-145 [facility] Work Phone: Triglyceride [Mass/Vol] 132 mg/dL <199 [facility] Work Phone: Comment on above: The drugs N-Acetylcy steine and Metamizole may falsely depress this assay.Serum Triglycerides Reference Interval Normal <150 mg/dL Borderline high 150 - 199 mg/dL High 200 - 499 mg/dL Very High > or = 500 mg/dL WBC (Bld) [#/Vol] 6.8 10*3/uL 4.4-11.0 [facility] Work Phone: Blood erythrocytes count (nu mber/volume)on 03-03-2022 RBC (Bld) [#/Vol] 5.43 10*6/uL 4.6-6.2 [facility] Work Phone: Blood hemoglobin measurement (mass/volume)on 03-03-2022 Hemoglobin (Bld) [Mass/Vol] 16.6 g/dL 13.0-16.5 [facility] Work Phone: Blood lymphocytes/100 leukoc yteson 03-03-2022 Lymphocytes/100 WBC (Bld) 31.0 % 19-41 [facility] Work Phone: Blood monocytes/100 leukocyt eson 03-03-2022 Monocytes/100 WBC (Bld) 7.5 % 0-10 [facility] Work Phone: Blood platelet mean volumeon 03-03-2022 Platelet mean volume (Bld) [Entitic vol] 11.0 fL 6.2-12.0 [facility] Work Phone: Determination of erythrocyte mean corpuscular volume (MCV)on 03-03-2022 MCV (RBC) [Entitic vol] 89.5 fL 80-94 [facility] Work Phone: Hematocrit Auto (Bld) [Volum e fraction]on 03-03-2022 Hematocrit (Bld) [Volume fraction] 48.6 % 40-54 [facility] Work Phone: Laboratory - Chemistry and C hemistry - challengeon 03-03-2022 ALP [Catalytic activity/Vol] 57 U/L 45-117 [facility] Work Phone: ALT [Catalytic activity/Vol] 39 U/L 16-61 [facility] Work Phone: CO2 [Moles/Vol] 28.0 mmol/L 21.0-32.0 [facility] Work Phone: Globulin (S) [Mass/Vol] 3.4 g/dL 2.2-4.2 [facility] Work Phone: Urea nitrogen/Creatinine [Mass ratio] 15.2 mg/mg 10-20 [facility] Work Phone: Laboratory - Hematology and Cell countson 03-03-2022 Erythrocyte distribution width (RBC) [Entitic vol] 42.5 fL 35.1-43.9 [facility] Work Phone: Erythrocyte distribution width (RBC) [Ratio] 12.9 % 11.6-14.6 [facility] Work Phone: Immature granulocytes/100 WBC (Bld) 0.600 % 0.0-0.9 [facility] Work Phone: Comment on above: IG% - Immature Granu locytes (promyelocytes, myelocytes and metamyelocytes) > 1% indicates that a LEFT SHIFT is Present. MCH (RBC) [Entitic mass] 30.6 pg 27.0-32.0 [facility] Work Phone: Nucleated RBC/100 WBC (Bld) [Ratio] 0 % 0-5 [facility] Work Phone: MCHC Auto (RBC) [Mass/Vol]on 03-03-2022 MCHC (RBC) [Mass/Vol] 34.2 g/dL 32-36 [facility] Work Phone: No Panel Informationon 03-03 Estimated GFR (MDRD) Amer 132 mL/min >60 [facility] Work Phone: Comment on above: GFR Calc Estimated GFR (MDRD) Non-Af Amer 109 mL/min >60 [facility] Work Phone: Comment on above: Non- GFR Calc Prostate Specific Antigen Screen 1.22 ng/mL 0.00-4.00 [facility] Work Phone: Comment on above: This test was perfor med using the TPSA assay method for the[employer] chemistry system. Values obtained with differentassay methods cannot be used interchangably.When changing PSA assays in the course of monitoring apatient, additional sequential testing should be carriedout to confirm baseline values. Platelets bldon 03-03-2022 Platelets (Bld) [#/Vol] 261 10*3/uL 150-450 [facility] Work Phone: Serum or plasma albumin ashley urement (mass/volume)on 03-03-2022 Albumin [Mass/Vol] 3.9 g/dL 3.2-5.0 [facility] Work Phone: Serum or plasma albumin/glob ulin mass ratioon 03-03-2022 Albumin/Globulin [Mass ratio] 1.1 {ratio} 0.9-2.4 [facility] Work Phone: Serum or plasma calcium ashley urement (mass/volume)on 03-03-2022 Calcium [Mass/Vol] 8.8 mg/dL 8.5-10.1 [facility] Work Phone: Serum or plasma cholesterol in HDL measurement (mass/volume)on 03-03-2022 Cholesterol in HDL [Mass/Vol] 37 mg/dL >40 [facility] Work Phone: Comment on above: The drugs N-Acetylcy steine and Metamizole may falsely depress this assay. Reference Range HDL <40 mg/dL Low HDL Cholesterol HDL >or= 60 mg/dL High HDL Cholesterol Serum or plasma cholesterol in VLDL measurement (mass/volume)on 03-03-2022 Cholesterol in VLDL [Mass/Vol] 26 mg/dL 5-40 [facility] Work Phone: Serum or plasma creatinine m easurement (mass/volume)on 03-03-2022 Creatinine [Mass/Vol] 0.79 mg/dL 0.70-1.30 [facility] Work Phone: Comment on above: The validity of the calculated GFR & GFRAA in patients over 70 years has not been determined. Clinical correlation is essential. Serum or plasma low density lipoprotein (LDL) cholesterol measurement (mass/volume)on 03-03-2022 Cholesterol in LDL [Mass/Vol] 140 mg/dL 0-130 [facility] Work Phone: Serum or plasma urea nitroge n measurement (mass/volume)on 03-03-2022 Urea nitrogen [Mass/Vol] 12 mg/dL 7-18 [facility] Work Phone: Thin prep Papanicolaou smear with manual screeningon 03-03-2022 Thin prep Papanicolaou smear with manual screening 17 U/L 15-37 [facility] Work Phone: Thin prep Papanicolaou smear with manual screening 5 5-15 [facility] Work Phone: Encounters Encounter Date Encounter Type Care Provider Facility Start: 09-06-2025 ambulatory [facility] Facility: [facility] Start: 08-15-2025 ambulatory [facility] Facility: [facility] Start: 08-14-2025 End: 08-14-[address] [facility] Facility:[facility] Start: 08-10-2025 End: 08-10-2025 [facility] Facility:[facility] Start: 07-26-2025 ambulatory [facility] Facility: [facility] Start: 07-10-2025 End: 07-10-2025 ambulatory [facility] Facility:[facility] Start: 06-08-2025 Encounter for genera l adult medical examination without abnormal findings [facility] Start: 06-05-2025 End: 06-05-2025 ambulatory Honorio Reed See Facility:[facility] Start: 06-04-2025 End: 06-04-2025 ambulatory [facility] Facility:[facility] Start: 05-07-2025 End: 05-07-2025 ambulatory Honorio L See Facility:[facility] Start: 03-07-2025 End: 03-07-2025 ambulatory Honorio L Seese Facility:[facility] Start: 01-09-2025 End: 01-09-2025 ambulatory [facility] Facility:[facility] Start: 12-28-2024 End: 12-28-2024 ambulatory Honorio Reed See Facility:[facility] Start: 12-08-2024 Encounter for rafat l adult medical examination without abnormal findings Stone Reid [facility] Start: 12-08-2024 ambulatory Stone WilkesJeanette Facility: [facility] Start: 11-13-2024 End: 11-13-2024 ambulatory Honorio Orourke Facility:[facility] Start: 06-28-2023 End: 06-28-2023 ambulatory [facility] Work Phone: Start: 06-28-2023 End: 06-28-2023 Patient encounter procedure [facility], [facility] Work Phone: Start: 05-20-2023 End: 05-20-2023 ambulatory [facility] Work Phone: Start: 05-20-2023 End: 05-20-2023 Patient encounter procedure [facility] Work Phone: Start: 06-05-2022 End: 06-05-2022 ambulatory [facility] Work Phone: Start: 06-05-2022 End: 06-05-2022 Patient encounter procedure [facility] Start: 03-03-2022 End: 03-03-2022 Patient encounter procedure [facility] Procedures Date Procedure Procedure Detail Performing Clinician Start: 06-28-2023 CT of chest Plan of Treatment Date Care Activity Detail Author Testosterone Free [M ass/volume] in Serum or Plasma [facility] Work Phone: Testosterone measurement [facility] Work Phone: [facility] Work Phone: Immunizations Immunization Date Immunization Notes Care Provider Fa cility 01-21-2021 Covid (Pfizer) [facility] 12-31-2020 Covid (Pfizer) [facility] Payers Date Payer Category Payer Unknown [id number] 2024 Self-pay [id number] Unknown [id number] Unknown [id number] Unknown [id number] 2.16.8 [id number] Unknown [id number] 2.16.8 [id number] Unknown [id number] 2.16.8 [id number] Unknown [id number] 2.16.8 [id number] Unknown [id number] 2.16.8 [id number] Unknown [id number] 2.16.8 [id number] Unknown [id number] 2.16.8 [id number] Unknown [id number] 2.16.8 [id number] Unknown [id number] 2.16.8 [id number] Unknown [id number] 2.16.8 [id number] Unknown [id number] 2.16.8 [id number] Unknown [id number] 2.16.8 [id number] Social History Date Type Detail Facility Start: [facility]18-2019 [facility] Start: 04-18-2019 Cigarettes [facility] Start: 1970 Sex Assigned At Male [facility] Progress note 08-14-2025 Note Date & Type Note Facility 08-14-2025 Note HNO ID: [id number] Author: SHELBY CARRANZA APRN.LINDA Service: ? Author Type: Nurse Practitioner Type: Progress Notes Filed: 08/14/2025 09:06 Note Text: Alejandra Louise is a 55 year old male who presents today for evaluation of Patient presents with: Urinary Frequency Blood In Urine Consultation requested by Zoë Ryan CNP for an opinion regarding microscopic hematuria. My final recommendations will be communicated back to the requesting physician by way of shared medical record or letter via US mail CHIEF COMPLAINT AND HISTORY OF PRESENT ILLNESS The patient is a 55-year-old male with history of seminoma in remission and type 2 diabetes mellitus, presenting for evaluation of microscopic hematuria. The patient is a 55-year-old male with a history of testicular cancer, presenting for evaluation of hematuria and weight loss. Hematuria: - Microscopic hematuria noted in urine sample 4 days ago; no visible hematuria reported. Urine noted small blood, no microscopic was sent - No history of kidney stones, bladder, prostate, or kidney surgery. - No dysuria or UTIs. - Recent PSA level of 0.92 mg/mL in May. Weight Loss: - Unintentional weight loss of 27-30 lbs since May. - Initially attempted weight loss after discontinuing Abilify. - Diagnosed with type 2 diabetes in May; dietary changes include cutting out sweets and soda. - Increased exercise, but not to a degree expected to cause significant weight loss. - Variable appetite; eats daily but reports less appetite. Testicular Cancer: - Diagnosed with testicular cancer in 2001; underwent right orchiectomy at a hospital in [place]. - Recurrence in 2006 with metastasis to lymph nodes; treated with four cycles of chemotherapy at [facility] in [place]. - No current pain or swelling in the remaining testicle. - History of varicocele. - CT scan of the abdomen and pelvis scheduled for tomorrow at 17:30. - PVR 0 cc Smoking: - Current smoker; history of exposure to secondhand smoke from father during childhood. Family History: - Mother has schizophrenia. - Father has asthma. VITALS: Height 188 cm (6' 2), weight 123.4 kg (272 lb). ALLERGIES: Ibuprofen MEDICATIONS: Current Outpatient Medications Medication Sig Dispense Refill ALPRAZolam (XANAX) 0.5 mg tablet Take 0.5 mg by mouth two times a day. PARoxetine (PAXIL) 10 mg tablet Take 10 mg by mouth once daily. Total of 50 mg TRELEGY ELLIPTA 200-62.5-25 mcg inhalation powder Inhale 1 puff as instructed once daily. cholecalciferol, Vitamin D3, (VITAMIN D3) 1,250 mcg (50,000 unit) cap capsule Take 50,000 Units by mouth once every month. ondansetron orally disintegrating (ZOFRAN ODT) 4 mg disintegrating tablet Take 1 tablet by mouth every 6 hours as needed for nausea/vomiting for up to 7 days. 20 tablet 0 MULTIVITAMIN (MULTIPLE VITAMIN ORAL) Take 1 tablet by mouth once daily. acetaminophen (TYLENOL) 325 mg tablet Take 650 mg by mouth every 6 hours as needed. paroxetine hcl(PAXIL 40 MG TAB) Take one(1) tablet daily. 0 No current facility-administered medications for this visit. SOCIAL HISTORY: SOCIAL HISTORY[1] PAST MEDICAL HISTORY: PAST MEDICAL HISTORY Diagnosis Date Current smoker Diabetes mellitus (HCC) Testicular cancer (HCC) 2001 right PAST SURGICAL HISTORY: PAST SURGICAL HISTORY Procedure Laterality Date ORCHIECTOMY SIMPLE Right FAMILY HISTORY: FAMILY HISTORY Problem Relation Age of Onset Schizophrenia Mother Asthma Father All histories reviewed on this date 08/14/2025: Yes REVIEW OF SYSTEMS: CONSTITUTIONAL: weight loss, amount 30 CARDIOVASCULAR: Negative for chest pain. RESPIRATORY: +smoker All other systems reviewed and are negative other than HPI. RADIOLOGY REPORTS REVIEWED: Yes LAB RESULTS REVIEWED: Yes IMAGING STUDIES INDEPENDENTLY REVIEWED: N/A OLD RECORDS REVIEWED: Yes: Extensive: No PHYSICAL EXAM: constitutional: appears healthy in no acute distress respiratory: normal respiratory motion gu: scrotum: Normal epididymis: left epididymal cyst urethral meatus: Normal penis: no lesions or deformities. testes: normal size and symmetry, no masses, right absent genitial skin: Normal ASSESSMENT/PLAN: 1. Microscopic hematuria (R31.29) - Urinalysis from four days ago showed small blood, and today's sample showed trace hematuria. Ordered microscopic urinalysis to quantify RBCs. No dysuria or history of UTIs. Recent PSA level from May was 0.92 mg/mL, within normal limits. Awaiting results of CT scan of the abdomen and pelvis scheduled for tomorrow evening at 1730, ordered by Dr. Lynn. Will review imaging results later in the week and determine further testing if necessary. -report gross hematuria to our office 2. Malignant neoplasm of right testis, unspecified whether descended or undescended (HCC) (C62.91) - History of right orchiectomy in 2001 for testicular cancer, followed by recurr (more content not included)... [facility] Progress note 08-14-2025 Note Date & Type Note Facility 08-14-2025 Note HNO ID: [id number] Author: LIZZ CHUNG MA Service: ? Author Type: Clearance Diver Type: Progress Notes Filed: 08/14/2025 09:06 Note Text: 0 mL of urine in the bladder after voiding [facility] Progress note 08-10-2025 Note Date & Type Note Facility 08-10-2025 Note HNO ID: [id number] Author: ZOË RYAN APRN.CNP Service: ? Author Type: Nurse Practitioner Type: Progress Notes Filed: 08/10/2025 09:14 Note Text: [facility] Louise is a 55 year old male. Patient presents with: Other: Many symptoms.Tired and no energy. Diarrhea,yellow urine with resent urine test shows microscopic blood. Recently diagnosed with type 2 diabetes. Low testosterone. - Entered by patient Fatigue: States tired, weight loss, dizziness, urine frequency, strong odor x started x 1 year has increased over last 6 months Fatigue The patient is a 55-year-old male with DMII and a remote history of testicular cancer presenting with microscopic hematuria, persistent nausea, and unintentional weight loss. He is accompanied by a strategic business development who provides additional history. The patient reports microscopic hematuria detected on a recent urinalysis. He has a remote history of testicular cancer diagnosed approximately 12-20 years ago, with follow-up tumor markers and imaging for about 10 years after diagnosis. He is not currently under urology or oncology care. He has a CT scan of the urinary bladder scheduled for the , ordered by Dr. Reid, with follow-up blood work on the and an appointment on the . Since May, the patient has experienced persistent nausea described as a constant carsick feeling, with associated dry heaving. He has unintentionally lost over 30 pounds during this period. He also reports dry mouth, increased urinary frequency, and a single episode of hand tremors. He has also experienced episodes of palpitations. He suspects dehydration may be contributing to his symptoms. He was recently diagnosed with DMII with an A1c of 7.0. He is not currently on metformin and is managing his diabetes with diet alone. Review of Systems Constitutional: Positive for malaise/fatigue. Constitutional: (+) unintentional weight loss Ears/Nose/Mouth/Throat: (+) dry mouth Cardiovascular: (+) palpitations Gastrointestinal: (+) nausea, (+) retching Genitourinary: (+) urinary frequency Musculoskeletal: (-) back pain Neurological: (+) tremor No past medical history on file. No past surgical history on file. ALLERGIES Ibuprofen MEDICATIONS ALPRAZolam (XANAX) 0.5 mg tablet Take 0.5 mg by mouth two times a day. PARoxetine (PAXIL) 10 mg tablet Take 10 mg by mouth once daily. Total of 50 mg TRELEGY ELLIPTA 200-62.5-25 mcg inhalation powder Inhale 1 puff as instructed once daily. cholecalciferol, Vitamin D3, (VITAMIN D3) 1,250 mcg (50,000 unit) cap capsule Take 50,000 Units by mouth once every month. MULTIVITAMIN (MULTIPLE VITAMIN ORAL) Take 1 tablet by mouth once daily. paroxetine hcl(PAXIL 40 MG TAB) Take one(1) tablet daily. acetaminophen (TYLENOL) 325 mg tablet Take 650 mg by mouth every 6 hours as needed. No family history on file. SOCIAL HISTORY[1] Objective BP 141/98 Pulse 99 Temp 36.7 ?C (98 ?F) Resp 18 Wt 125 kg (275 lb 9.2 oz) SpO2 97% BMI 36.36 kg/m? Physical Exam Constitutional: Appearance: Normal appearance. He is normal weight. HENT: Head: Normocephalic and atraumatic. Mouth/Throat: Mouth: Mucous membranes are moist. Pharynx: No oropharyngeal exudate or posterior oropharyngeal erythema. Eyes: Extraocular Movements: Extraocular movements intact. Conjunctiva/sclera: Conjunctivae normal. Pupils: Pupils are equal, round, and reactive to light. Cardiovascular: Rate and Rhythm: Normal rate and regular rhythm. Pulses: Normal pulses. Heart sounds: Normal heart sounds. Pulmonary: Effort: Pulmonary effort is normal. Breath sounds: Normal breath sounds. Abdominal: General: There is no distension. Palpations: There is no mass. Tenderness: There is no abdominal tenderness. There is no right CVA tenderness, left CVA tenderness, guarding or rebound. Hernia: No hernia is present. Neurological: Mental Status: He is alert. { 1. Urinary frequency (R35.0) 2. Microscopic hematuria (R31.29) - Urinalysis negative for nitrites and leukocytes, ruling out UTI; positive for microscopic hematuria and ketones. - CT scan of urinary bladder scheduled for the , ordered by Dr. Reid. - Refer to urology for further evaluation of microscopic hematuria. 3. Type 2 diabetes mellitus without complication, without long-term current use of insulin (HCC) (E11.9) - Recent diagnosis; symptoms of dry mouth, urinary frequency, and fatigue may be related. - Discussed that HbA1c of 7% can often be managed with diet alone, but medication may be considered if symptoms persist. - Advised patient to call Dr. Reid's office to schedule an in-person appointment to discuss diabetes management, rather than relying on portal messaging. - Discussed risks and benefits of medication management, including potential side effects of metformin. 4. Nausea (R11.0) - Chronic nausea with dry heaving an (more content not included)... [facility] Evaluation note Note Date & Type Note Facility Evaluation note No assessment information availa [facility] Work Phone: Family History No Family History Records Found Relationship Condition Age at Onset Recorded Date/T cale sister Asthma Unknown grandfather Diabetes mellitus Unknown Advance Directives No Advanced Directives Records Found Advance Directive Response Recorded Date/ Time Living Will No April 18, 2019 1 :56pm Power of Coach [employer] No April 18, 2019 1:56pm Chief Complaint and Reason for Visit Chief Complaint SCREENING Summary Purpose Additional Source Comments Goals (unrecognized section and content) Goals may be documented in a n alternate sectionGoals may be documented in an alternate sectionGoals may be documented in an alternate sectionGoals may be documented in an alternate section Care Teams (unrecognized sec tion and content) Team Status: Active Member Role Status Dates Dr. Stone Reid DO Family Provider Active Dr. Stone Reid DO Primary Care Provider Active Team Status: Inactive Member Role Status Dates Dr. Stone Reid DO Primary Care Prov ider, Attending Provider, Referring Provider Active (unrecognized sect ion and content) No Status Records FoundNo Status Records Found INFORMATION SOURCE (unrecogn ized section and content) DATE CREATED AUTHOR 08/14/2025 [facility] DATE CREATED AUTHOR AUTHOR'S ALYCE BILLINGSLEY 08/15/2025 [facility] FOR RECORDS PERTAINING TO PATIENTS WHO ARE OR HAVE BEEN ENROLLED IN A CHEMICAL DEPENDENCY/SUBSTANCEABUSE PROGRAM, SOME INFORMATION MAY BE OMITTED. This clinical summary was aggregated from multiple sources. Caution should be exercised in using it in the provision of clinical care. This summary normalizes information from multiple sources, and as a consequence, information in this document may materially change the coding, format and clinical context of patient data. In addition, data may be omitted in some cases. CLINICAL DECISIONS SHOULD BE BASED ON THE PRIMARY CLINICAL RECORDS. [employer] provides no warranty or guarantee of the accuracy or completeness of information in this document.
--- OUTSIDE RECORDS SUMMARY | 2025-08-15 18:26 | XMS RPT_ITS | CCD ---
Author Organization [facility] Care Team Providers Care Charity Fundraiser Name Role Phone [facility] [...] sources) Ibuprofen; Translations: [IBUPROFEN] Drug Allergy 07-10-2025 [facility] Repository Medications Current Medications Medication Drug Class(es) [...] 08-14-2025 CNOV Office Visit (UROLMD) ALEJANDRA LOUISE ([id number]) 1970 M Date Time Provider Department 08/14/25 8:00 AM SHELBY CARRANZA UROLMD During your visit today, we recorded the following information about you: Weight Height 123.4 kg 1.88 m Lizz Chung MA 08/14/2025 9:06 AM Signed 0 mL of urine in the bladder after voiding Shelby Carranaz, ROOF PAINTER.LINDA 08/14/2025 9:06 AM Signed Alejandra Louise is [...] 2001; underwent right orchiectomy at hospital in [place]. 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 - No current pain or swelling in [...] Jerry mcdonald (more content not included)... Normal [facility] Urinalysis complete panel (U )on 08-14-2025 Bilirubin Ql (U) Negative Normal Negative [facility] Comment on above: Order Comment: Speci men Type: URINE SPECIMEN Ordering Facility: [facility] Address: [address] [place], [place] [address] Performed By: #### 2 4356-8 #### [facility] CLIA [id number] [address] [place] [address] [place] Clarity (Unsp spec) Clear Normal Clear [facility] Comment on above: Order Comment: Speci men Type: URINE SPECIMEN Ordering Facility: [facility] Address: [address] [place] [address] Performed By: #### 2 4356-8 #### [facility] CLIA [id number] [address] [place] Color (U) Yellow Normal Yellow [facility] Comment on above: Order Comment: Speci men Type: URINE SPECIMEN Ordering Facility: [facility] Address: [address] [place] [address] Performed By: #### 2 4356-8 #### [facility] CLIA [id number] [address] [place] [address] [place] Glucose Test strip (U) [Mass/Vol] Negative Normal Negative [facility] Comment on above: Order Comment: Speci men Type: URINE SPECIMEN Ordering Facility: [facility] Address: [address] [place] [address] Performed By: #### 2 4356-8 #### [facility] CLIA [id number] [address] [place] [address] [place] Hemoglobin Ql (U) Negative Normal Negative [facility] Comment on above: Order Comment: Speci men Type: URINE SPECIMEN Ordering Facility: [facility] Address: [address] [place] [address] Performed By: #### 2 4356-8 #### [facility] CLIA [id number] [address] [facility] Ketones Ql (U) Negative Normal Negative [facility] Comment on above: Order Comment: Speci men Type: URINE SPECIMEN Ordering Facility: [facility] Address: [address] [place] [address] Performed By: #### 2 4356-8 #### [facility] CLIA [id number] [address] [place] Leukocyte esterase Test strip Ql (U) Negative Normal Negative [facility] Comment on above: Order Comment: Speci men Type: URINE SPECIMEN Ordering Facility: [facility] Address: [address] [place] [address] Performed By: #### 2 4356-8 #### [facility] CLIA [id number] [address] [place] [address] [place] Nitrite Ql (U) Negative Normal Negative [facility] Comment on above: Order Comment: Speci men Type: URINE SPECIMEN Ordering Facility: [facility] Address: [address] [place] [address] Performed By: #### 2 4356-8 #### [facility] CLIA [id number] [address] [place] [address] [facility] [place] pH (U) 7.0 [pH] Normal 5.0-8.0 [facility] Comment on above: Order Comment: Speci men Type: URINE SPECIMEN Ordering Facility: [facility] Address: [address] [place] [address] Performed By: #### 2 4356-8 #### [facility] CLIA [id number] [address] [place] Protein (U) [Mass/Vol] Negative Normal Negative [facility] Comment on above: Order Comment: Speci men Type: URINE SPECIMEN Ordering Facility: [facility] Address: [address] [place] [address] Performed By: #### 2 4356-8 #### [facility] CLIA [id number] [address] [place] [address] [place] RBC LM.HPF (Urine sed) [#/Area] 0-3 /HPF Normal 0-3 /HPF [facility] Comment on above: Order Comment: Speci men Type: URINE SPECIMEN Ordering Facility: [facility] Address: [address] [place] [address] Performed By: #### 2 4356-8 #### [facility] CLIA [id number] [address] [place] [address] [place] Specific gravity (U) [Rel density] 1.010 Normal 1.005-1.030 [facility] Comment on above: Order Comment: Speci men Type: URINE SPECIMEN Ordering Facility: [facility] Address: [address] [place] [address] Performed By: #### 2 4356-8 #### [facility] CLIA [id number] [address] [place] Urobilinogen Ql (U) 0.2 EU/dL Normal 0.2-1.0 EU/dL Cl [facility] Comment on above: Order Comment: Speci men Type: URINE SPECIMEN Ordering Facility: [facility] Address: [address] [place] [address] Performed By: #### 2 4356-8 #### [facility] CLIA [id number] [address] STATES [facility] WBC LM.HPF (Urine sed) [#/Area] 0-5 /HPF Normal 0-5 /HPF [facility] Comment on above: Order Comment: Speci men Type: URINE SPECIMEN Ordering Facility: [facility] Address: [address] [place] [address] Performed By: #### 2 4356-8 #### [facility] CLIA [id number] [address] CNOVon 08-10-2025 CNOV Office Visit (WOUCA) ALEJANDRA LOUISE ([id number]) 1970 M Date Time Provider Department 08/10/25 [...] weight loss. He is accompanied by a senior oracle developer who provides additional history. The patient reports [...] Reid's off (more content not included)... Normal [facility] Basic Metabolic Profile (BMP )on 07-26-2025 BUN/CRE 15.4 RATIO Normal 08-06 [facility] Comment on above: Performed By: #### L 400.2011, L500.2500 ####[facility] [address] [place], [address] Calcium [Mass/Vol] 9.3 mg/dL Normal 7.6-11.0 [facility] Comment on above: Performed By: #### L 400.2010, L500.2500 ####[facility] [address] [place], [address] Chloride [Moles/Vol] 103 mmol/L Normal 98-108 [facility] Comment on above: Performed By: #### L 400.2010, L500.2500 ####[facility] [address] [place], [address] CO2 [Moles/Vol] 26.0 mmol/L Normal 21.0-32.0 [facility] Comment on above: Performed By: #### L 400.2010, L500.2500 ####[facility] [address] [place], [address] Creatinine [Mass/Vol] 0.79 mg/dL Normal 0.70-1.20 [facility] Comment on above: Performed By: #### L 400.2010, L500.2500 ####[facility] [address] [place], [address] GAP 10 Normal 5-15 [facility] Comment on above: Performed By: #### L 400.2010, L500.2500 ####[facility] [address] [place], [address] GFR/1.73 sq M.predicted among non-blacks MDRD (S/P/Bld) [Vol rate/Area] 104 mL/min/{1.73_m2} Normal >60 [facility] Comment on above: Result Comment: mL/m in/1.73m2 CKD-EPI Creatinine Equation (2020) Performed By: #### L 400.2010, L500.2500 ####[facility] [address] [place], [address] Glucose [Mass/Vol] 93 mg/dL Normal 70-99 [facility] Comment on above: Performed By: #### L 400.2010, L500.2500 ####[facility] [address] [place], [address] Potassium [Moles/Vol] 3.7 mmol/L Normal 3.3-5.1 [facility] Comment on above: Performed By: #### L 400.2010, L500.2500 ####[facility] [address] [place], [address] Sodium [Moles/Vol] 139 mmol/L Normal 133-145 [facility] Comment on above: Performed By: #### L 400.2010, L500.2500 ####[facility] [address] [place], [address] Urea nitrogen [Mass/Vol] 12 mg/dL Normal 4-19 [facility] Comment on above: Performed By: #### L 400.2010, L500.2500 ####[facility] [address] [place], [address] Urinalysis, Routine (Dipstic k)on 07-26-2025 BILIRUBIN URINE Negative Normal Negative [facility] Comment on above: Order Comment: Urine , Random Performed By: #### L 400.2010, L500.2500 ####[facility] [address] [place], [address] Clarity (U) Clear Normal Clear [facility] Comment on above: Order Comment: Urine , Random Performed By: #### L 400.2010, L500.2500 ####[facility] [address] [place], [address] Color (U) Yellow Normal Yellow [facility] Comment on above: Order Comment: Urine , Random Performed By: #### L 400.2010, L500.2500 ####[facility] [address] [place], [address] GLUCOSE, UR Normal Normal Normal [facility] Comment on above: Order Comment: Urine , Random Performed By: #### L 400.2010, L500.2500 ####[facility] [address] [place], [address] KETONE UR 5 mg/dl Abnormal Negative [facility] Comment on above: Order Comment: Urine , Random Performed By: #### L 400.2010, L500.2500 ####[facility] [address] [place], [address] LEUK ESTERASE Negative Normal Negative [facility] Comment on above: Order Comment: Urine , Random Performed By: #### L 400.2010, L500.2500 ####[facility] [address] [place], [address] Nitrite Ql (U) Negative Normal Negative [facility] Comment on above: Order Comment: Urine , Random Performed By: #### L 400.2010, L500.2500 ####[facility] [address] [place], [address] OCCULT BLOOD-UR 25 /ul Abnormal Negative [facility] Comment on above: Order Comment: Urine , Random Performed By: #### L 400.2010, L500.2500 ####[facility] [address] [place], [address] pH UR 5.0 Normal 5.0 - 8.0 [facility] Comment on above: Order Comment: Urine , Random Performed By: #### L 400.2010, L500.2500 ####[facility] [address] [place], [address] PROT DIPSTX 30 mg/dl Abnormal Negative [facility] Comment on above: Order Comment: Urine , Random Performed By: #### L 400.2010, L500.2500 ####[facility] [address] [place], [address] SP.GR. DIPSTX 1.025 Normal 1.002-1.030 [facility] Comment on above: Order Comment: Urine , Random Performed By: #### L 400.2010, L500.2500 ####[facility] [address] [place], [place], [address] UROBILI Normal Normal Normal [facility] Comment on above: Order Comment: Urine , Random Performed By: #### L 400.2010, L500.2500 ####[facility] [address] [place], [place], [address] MR/BMS.BPon 07-10-2025 MR/BMS.BP [facility] [address], [address] [place] [address] OFFICE VISIT Date of Service: 07/10/25 MR#: [id number] Acct: [id number] Name: ALEJANDRA LOUISE Rep #: [id number] : 1970 Provider: Dr. Honorio Bernstein se, DO Age/Sex: 55/M Location: [facility].BP Status: Signed Intake Vital Signs 06/05/25 09:36 [...] vis,est,level 4 (more content not included)... Normal [facility] MR/BMS.BPon 06-05-2025 MR/BMS.BP [facility] [address] [place] [address], [facility] [address] [place] [address] OFFICE VISIT Date of Service: 06/05/25 MR#: [id number] Acct: [id number] Name: ALEJANDRA LOUISE Rep #: [id number] : 1970 Provider: Dr. Honorio Bernstein se, DO Age/Sex: 55/M Location: [facility].BP Status: Signed Intake Vital Signs 05/07/25 06:54 [...] 62.5 mcg-vilant 25 mcg inhalat.powder (Trelegy Ellipta) [facility] Medical History (Updated 05/08/25 @ 06:56 by [...] Date Honorio (more content not included)... Normal [facility] CBC W/Diff, Automatedon 05-18 Absolute Lymph 2.65 X10 3/uL Normal 0.83-4.51 [facility] Comment on above: Performed By: #### L 501.9910, L500.4050, L100.0100, L500.4100, L509.3001, L501.9985 #### [facility] [address] [place], [address] Absolute Neut 6.4 X10 3/uL Normal 2.0-7.7 [facility] Comment on above: Performed By: #### L 501.9910, L500.4050, L100.0100, L500.4100, L509.3001, L501.9985 #### [facility] [address] [place], [address] Basophils/100 WBC (Bld) 0.8 % Normal 0-1 [facility] Comment on above: Performed By: #### L 501.9910, L500.4050, L100.0100, L500.4100, L509.3001, L501.9985 #### [facility] [address] [place], [address] Eosinophils/100 WBC (Bld) 1.7 % Normal 0-5 [facility] Comment on above: Performed By: #### L 501.9910, L500.4050, L100.0100, L500.4100, L509.3001, L501.9985 #### [facility] [address] [place], [address] Erythrocyte distribution width (RBC) [Ratio] 13.5 % Normal 11.6-14.6 [facility] Comment on above: Performed By: #### L 501.9910, L500.4050, L100.0100, L500.4100, L509.3001, L501.9985 #### [facility] [address] [place], [address] Hematocrit (Bld) [Volume fraction] 49.7 % Normal 40-54 [facility] Comment on above: Performed By: #### L 501.9910, L500.4050, L100.0100, L500.4100, L509.3001, L501.9985 #### [facility] [address] [place], [address] Hemoglobin (Bld) [Mass/Vol] 17.2 g/dL High 13.0-16.5 [facility] Comment on above: Performed By: #### L 501.9910, L500.4050, L100.0100, L500.4100, L509.3001, L501.9985 #### [facility] [address] [place], [address] IG% 0.500 Normal 0.0-0.9 [facility] Comment on above: Result Comment: IG% - Immature Granulocytes (promyelocytes, myelocytes and metamyelocytes) > 1% indicates that a LEFT SHIFT is Present. Performed By: #### L 501.9910, L500.4050, L100.0100, L500.4100, L509.3001, L501.9985 #### [facility] [address] [place], [address] Lymphocytes/100 WBC (Bld) 26.4 % Normal 19-41 [facility] Comment on above: Performed By: #### L 501.9910, L500.4050, L100.0100, L500.4100, L509.3001, L501.9985 #### [facility] [address] [place], [address] MCH (RBC) [Entitic mass] 30.4 pg Normal 27.0-32.0 [facility] Comment on above: Performed By: #### L 501.9910, L500.4050, L100.0100, L500.4100, L509.3001, L501.9985 #### [facility] [address] [place], [address] MCHC (RBC) [Mass/Vol] 34.6 g/dL Normal 32-36 [facility] Comment on above: Performed By: #### L 501.9910, L500.4050, L100.0100, L500.4100, L509.3001, L501.9985 #### [facility] [address] [place], [address] MCV (RBC) [Entitic vol] 88.0 fL Normal 80-94 [facility] Comment on above: Performed By: #### L 501.9910, L500.4050, L100.0100, L500.4100, L509.3001, L501.9985 #### [facility] [address] [place], [address] Monocytes/100 WBC (Bld) 7.4 % Normal 0-10 [facility] Comment on above: Performed By: #### L 501.9910, L500.4050, L100.0100, L500.4100, L509.3001, L501.9985 #### [facility] [address] [place], [address] Neutrophils/100 WBC (Bld) 63.2 % Normal 47-70 [facility] Comment on above: Performed By: #### L 501.9910, L500.4050, L100.0100, L500.4100, L509.3001, L501.9985 #### [facility] [address] [place], [address] Nucleated RBC (Bld) [#/Vol] 0 10*3/uL Normal 0-5 [facility] Comment on above: Performed By: #### L 501.9910, L500.4050, L100.0100, L500.4100, L509.3001, L501.9985 #### [facility] [address] [place], [address] Platelet mean volume (Bld) [Entitic vol] 10.4 fL Normal 6.2-12.0 [facility] Comment on above: Performed By: #### L 501.9910, L500.4050, L100.0100, L500.4100, L509.3001, L501.9985 #### [facility] [address] [place], [address] Platelets (Bld) [#/Vol] 297 10*3/uL Normal 150-450 [facility] Comment on above: Performed By: #### L 501.9910, L500.4050, L100.0100, L500.4100, L509.3001, L501.9985 #### [facility] [address] [place], [address] RBC (Bld) [#/Vol] 5.65 10*6/uL Normal 4.6-6.2 [facility] Comment on above: Performed By: #### L 501.9910, L500.4050, L100.0100, L500.4100, L509.3001, L501.9985 #### [facility] [address] [place], [address] RDW SD 43.3 fl Normal 35.1-43.9 [facility] Comment on above: Performed By: #### L 501.9910, L500.4050, L100.0100, L500.4100, L509.3001, L501.9985 #### [facility] [address] [place], [address] WBC (Bld) [#/Vol] 10.1 10*3/uL Normal 4.4-11.0 [facility] Comment on above: Performed By: #### L 501.9910, L500.4050, L100.0100, L500.4100, L509.3001, L501.9985 #### [facility] [address] [place], [address] Comprehensive Metabolic Prof ilon 06-04-2025 BUN/CRE 15.5 RATIO Normal 10-20 [facility] Comment on above: Result Comment: AMENDED REPORT 06/04/25 1200 BUN/CRE previously reported as: 15.5 RATIO Performed By: #### L 501.9910, L500.4050, L100.0100, L500.4100, L509.3001, L501.9985 #### [facility] [address] [place], [address] Urea nitrogen [Mass/Vol] 15 mg/dL Normal 4-19 [facility] Comment on above: Performed By: #### L 501.9910, L500.4050, L100.0100, L500.4100, L509.3001, L501.9985 #### [facility] [address] [place], [address] Hemoglobin A1con 06-04-2025 HbA1c (Bld) [Mass fraction] 7.0 % High <=5.6 [facility] Comment on above: Order Comment: CORINA Mello ADD ON FROM TODAY. H122. Result Comment: Norm al < 5.7 % Prediabetic 5.7 - 6.4 % Diabetic >or= 6.5 % Please note range changes. Performed By: #### L 501.9910, L500.4050, L100.0100, L500.4100, L509.3001, L501.9985 #### [facility] [address] [place], [address] L509.3001on 06-04-2025 Testosterone [Mass/Vol] 214.00 ng/dL Low 300-890 [facility] Comment on above: Performed By: #### L 501.9910, L500.4050, L100.0100, L500.4100, L509.3001, L501.9985 #### [facility] [address] [place], [address] Lipid Profileon 06-04-2025 CHOL:HDL 4.62 Normal [facility] Comment on above: Performed By: #### L 501.9910, L500.4050, L100.0100, L500.4100, L509.3001, L501.9985 #### [facility] [address] [place], [address] Cholesterol [Mass/Vol] 207 mg/dL High <=200 [facility] Comment on above: Result Comment: Chol esterol level, Desirable <200 mg/dL Borderline high cholesterol 200-239 mg/dL High cholesterol >=240 mg/dL Recommendations of the NCEP Adult Treatment Panel for the following risk-cutoff thresholds for the [place] population. Performed By: #### L 501.9910, L500.4050, L100.0100, L500.4100, L509.3001, L501.9985 #### [facility] [address] [place], [address] Cholesterol in HDL [Mass/Vol] 45 mg/dL Normal [facility] Comment on above: Result Comment: Cecile onal Cholesterol Education Program (NCEP) guidelines: <40 mg/dL: Low HDL-cholesterol (major risk factor for CHD) >= 60 mg/dL: High HDL-cholesterol (negative risk factor for CHD) HDL-cholesterol is affected by a number of factors, e.g. smoking, exercise, hormones, sex and age. Performed By: #### L 501.9910, L500.4050, L100.0100, L500.4100, L509.3001, L501.9985 #### [facility] [address] [place], [address] Cholesterol in LDL [Mass/Vol] 137 mg/dL Normal [facility] Comment on above: Result Comment: Bord zrwnpr=121-574 mg/dL Higher Ieab=050 mg/dL or greater Friedwald Equation for LDL-C Performed By: #### L 501.9910, L500.4050, L100.0100, L500.4100, L509.3001, L501.9985 #### [facility] [address] [place], [address] Cholesterol in VLDL [Mass/Vol] 25 mg/dL Normal 5-40 [facility] Comment on above: Performed By: #### L 501.9910, L500.4050, L100.0100, L500.4100, L509.3001, L501.9985 #### [facility] [address] [place], [address] Triglyceride [Mass/Vol] 125 mg/dL Normal [facility] Comment on above: Result Comment: The drugs N-Acetylcysteine and Metamizole may falsely depress this assay. Normal range: <150 mg/dL Borderline High: 150-199 mg/dL High: 200-499 mg/dL Very High: >500 mg/dL Performed By: #### L 501.9910, L500.4050, L100.0100, L500.4100, L509.3001, L501.9985 #### [facility] [address] [place], [address] PSA,Total - Annual Screenon 06-04-2025 PSA,TOT SCREEN 0.92 ng/mL Normal 0.02-4.00 [facility] Comment on above: Result Comment: This test [...] 501.9910, L500.4050, L100.0100, L500.4100, L509.3001, L501.9985 #### [facility] [address] [place], [address] MR/BMS.BPon 05-07-2025 MR/BMS.BP [place] [address] [facility], [address] [place], [place] [address] OFFICE VISIT Date of Service: 05/07/25 MR#: [id number] Acct: [id number] Name: ALEJANDRA LOUISE Rep #: [id number] : 1970 Provider: Dr. Honorio Bernstein se, DO Age/Sex: 55/M Location: [facility].BP Status: Signed with Addenda ADDENDUM by Dr. [...] Off v (more content not included)... Normal [facility] MR/BMS.BPon 03-07-2025 MR/BMS.BP [facility] [address], [address] [place] [address] OFFICE VISIT Date of Service: 03/07/25 MR#: [id number] Acct: [id number] Name: ALEJANDRA LOUISE Rep #: [id number] : 1970 Provider: Dr. Honorio Bernstein se, DO Age/Sex: 55/M Location: [facility].BP Status: Signed Intake Vital Signs 12/28/24 06:51 [...] Panic di (more content not included)... Normal [facility] Low Dose CT Lung Screeningon 01-09-[address] Lung Screening [facility] [address] [place] [address] Lung Screening MR#: [id number] Acct: [id number] Name: ALEJANDRA LOUISE Rep #: [id number] : 1970 M 54 From: Stone Castillo MD PCP: Dr. Stone Reid DO Status: [facility] Study: Low Dose CT Lung Screening Date of Exam: 01/09 Exam# [id number] Ordering Dr: Stone Reid DO EXAM: CT [...] in 12 months is recommended. Reading Location: [facility] CC: Dr. Stone Reid, Trailer Park Manager: Signed Normal [facility] MR/BMS.BPon 12-28-2024 MR/BMS.BP [place] [address] [facility], [address] [place] [address] OFFICE VISIT Date of Service: 12/28/24 MR#: [id number] Acct: [id number] Name: ALEJANDRA LOUISE Rep #: [id number] : 1970 Provider: Dr. Honorio Bernstein [...] Palomo Signature: Date (if applicable) CC: Normal [facility] MR/BMS.BPon 11-13-2024 MR/BMS.BP [facility] [address] [place] [address], [address] [place] [address] OFFICE VISIT Date of Service: 11/13/24 MR#: [id number] Acct: [id number] Name: ALEJANDRA LOUISE Rep #: [id number] : 1970 Provider: Dr. Honorio Bernstein se, DO Age/Sex: 54/M Location: [facility] DURANT.BP Status: Signed Intake Vital Signs 04/21/19 07:18 [...] panic attacks starting about 20 years ago. 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 Normal [facility] Absolute lymphocyte countOrd ered By: Stone Reid on 05-20-2023 Lymphocytes Auto (Unsp spec) [#/Vol] 2.67 10*3/uL 0.83-4.51 [facility] Basophil percentageOrdered B y: Stone Reid on 05-20-2023 Basophils/100 WBC (Bld) 0.9 % 0-1 [facility] Bilirubin [Mass/Vol] 0.40 mg/dL 0.20-1.00 [facility] Comment on above: For patients on eltr ombopag therapy, use of Dimension Orosi TBIL is not recommended. Chloride [Moles/Vol] 105 mmol/L 98-107 [facility] Cholesterol [Mass/Vol] 195 mg/dL <200 [facility] Comment on above: <200 mg/dL Desirable 200-240 mg/dL Borderline >240 mg/dL High Risk Eosinophils/100 WBC (Bld) 3.4 % 0-5 [facility] Glucose [Mass/Vol] 81 mg/dL 74-106 [facility] Neutrophils (Bld) [#/Vol] 4.0 10*3/uL 2.0-7.7 [facility] Neutrophils/100 WBC (Bld) 52.3 % 47-70 [facility] Potassium [Moles/Vol] 3.9 mmol/L 3.5-5.1 [facility] Protein [Mass/Vol] 7.5 g/dL 6.4-8.2 [facility] Sodium [Moles/Vol] 138 mmol/L 136-145 [facility] Testosterone [Mass/Vol] 384.30 ng/dL [facility] Comment on above: CENTRAL 90% REFERENC E RANGES MALE AGE <50 197.44 - 669.58 ng/dL MALE AGE > or = 50 187.72 - 684.19 ng/dL FEMALE AGE <50 8.38 - 35.01 ng/dL FEMALE AGE > or = 50 <7.00 - 35.92 ng/dL Effective as of 05/13/21 Triglyceride [Mass/Vol] 154 mg/dL <199 [facility] Comment on above: The drugs N-Acetylcy steine and Metamizole may falsely depress this assay.Serum Triglycerides Reference Interval Normal <150 mg/dL Borderline high 150 - 199 mg/dL High 200 - 499 mg/dL Very High > or = 500 mg/dL WBC (Bld) [#/Vol] 7.6 10*3/uL 4.4-11.0 [facility] Blood erythrocytes count (nu mber/volume)Ordered By: Stone Reid on 05-20-2023 RBC (Bld) [#/Vol] 5.45 10*6/uL 4.6-6.2 [facility] Blood hemoglobin measurement (mass/volume)Ordered By: Stone Reid on 05-20-2023 Hemoglobin (Bld) [Mass/Vol] 16.3 g/dL 13.0-16.5 [facility] Blood lymphocytes/100 leukoc ytesOrdered By: Stone Reid on 05-20-2023 Lymphocytes/100 WBC (Bld) 35.2 % 19-41 [facility] Blood monocytes/100 leukocyt esOrdered By: Stone Reid on 05-20-2023 Monocytes/100 WBC (Bld) 7.9 % 0-10 [facility] Blood platelet mean volumeOr dered By: Stone Reid on 05-20-2023 Platelet mean volume (Bld) [Entitic vol] 11.1 fL 6.2-12.0 [facility] Determination of erythrocyte mean corpuscular volume (MCV)Ordered By: Stone Reid on 05-20-2023 MCV (RBC) [Entitic vol] 88.3 fL 80-94 [facility] Hematocrit Auto (Bld) [Volum e fraction]Ordered By: Stone Reid on 05-20-2023 Hematocrit (Bld) [Volume fraction] 48.1 % 40-54 [facility] Laboratory - Chemistry and C hemistry - challengeOrdered By: Stone Reid on 05-20-2023 ALP [Catalytic activity/Vol] 55 U/L 45-117 [facility] ALT [Catalytic activity/Vol] 36 U/L 16-61 [facility] CO2 [Moles/Vol] 27.0 mmol/L 21.0-32.0 [facility] Globulin (S) [Mass/Vol] 3.8 g/dL 2.2-4.2 [facility] Urea nitrogen/Creatinine [Mass ratio] 15.4 mg/mg 10-20 [facility] Laboratory - Hematology and Cell countsOrdered By: Stone Reid on 05-20-2023 Erythrocyte distribution width (RBC) [Entitic vol] 43.4 fL 35.1-43.9 [facility] Erythrocyte distribution width (RBC) [Ratio] 13.4 % 11.6-14.6 [facility] Immature granulocytes/100 WBC (Bld) 0.300 % 0.0-0.9 [facility] Comment on above: IG% - Immature Granu locytes (promyelocytes, myelocytes and metamyelocytes) > 1% indicates that a LEFT SHIFT is Present. MCH (RBC) [Entitic mass] 29.9 pg 27.0-32.0 [facility] Nucleated RBC/100 WBC (Bld) [Ratio] 0 % 0-5 [facility] MCHC Auto (RBC) [Mass/Vol]Or dered By: Stone Reid on 05-20-2023 MCHC (RBC) [Mass/Vol] 33.9 g/dL 32-36 [facility] No Panel InformationOrdered By: Stone Reid on 05-20-2023 Estimated GFR (MDRD) Amer 121 mL/min >60 [facility] Comment on above: GFR Calc Estimated GFR (MDRD) Non-Af Amer 100 mL/min >60 [facility] Comment on above: Non- GFR Calc Prostate Specific Antigen Screen 1.12 ng/mL 0.00-4.00 [facility] Comment on above: This test was perfor med using the TPSA assay method for the[employer] chemistry system. Values obtained with differentassay methods cannot be used interchangably.When changing PSA assays in the course of monitoring apatient, additional sequential testing should be carriedout to confirm baseline values. Platelets bldOrdered By: Aria Reid on 05-20-2023 Platelets (Bld) [#/Vol] 261 10*3/uL 150-450 [facility] Serum or plasma albumin ashley urement (mass/volume)Ordered By: Stone Reid on 05-20-2023 Albumin [Mass/Vol] 3.7 g/dL 3.2-5.0 [facility] Serum or plasma albumin/glob ulin mass ratioOrdered By: Stone Reid on 05-20-2023 Albumin/Globulin [Mass ratio] 1.0 {ratio} 0.9-2.4 [facility] Serum or plasma calcium ashley urement (mass/volume)Ordered By: Stone Reid on 05-20-2023 Calcium [Mass/Vol] 8.8 mg/dL 8.5-10.1 [facility] Serum or plasma cholesterol in HDL measurement (mass/volume)Ordered By: Stone Reid on 05-20-2023 Cholesterol in HDL [Mass/Vol] 39 mg/dL >40 [facility] Comment on above: The drugs N-Acetylcy steine and Metamizole may falsely depress this assay. Reference Range HDL <40 mg/dL Low HDL Cholesterol HDL >or= 60 mg/dL High HDL Cholesterol Serum or plasma cholesterol in VLDL measurement (mass/volume)Ordered By: Stone Reid on 05-20-2023 Cholesterol in VLDL [Mass/Vol] 31 mg/dL 5-40 [facility] Serum or plasma creatinine m easurement (mass/volume)Ordered By: Stone Reid on 05-20-2023 Creatinine [Mass/Vol] 0.85 mg/dL 0.70-1.30 [facility] Comment on above: The validity of the calculated GFR & GFRAA in patients over 70 years has not been determined. Clinical correlation is essential. Serum or plasma low density lipoprotein (LDL) cholesterol measurement (mass/volume)Ordered By: Stone Reid on 05-20-2023 Cholesterol in LDL [Mass/Vol] 125 mg/dL 0-130 [facility] Serum or plasma urea nitroge n measurement (mass/volume)Ordered By: Stone Reid on 05-20-2023 Urea nitrogen [Mass/Vol] 13 mg/dL 7-18 [facility] Thin prep Papanicolaou smear with manual screeningOrdered By: Stone Reid on 05-20-2023 Thin prep Papanicolaou smear with manual screening 20 U/L 15-37 [facility] Thin prep Papanicolaou smear with manual screening 6 5-15 [facility] No Panel Informationon 06-05 Vitamin D 25-Hydroxy 16.1 ng/mL [facility] Work Phone: Comment on above: Vitamin D 25(OH) Sta tus Range Deficiency <20 ng/mL (50nmol/L) Insufficiency 20 - 30 ng/mL (50 - 75 nmol/L) Sufficiency 30 - 100 ng/mL (75 - 250 nmol/L) Toxicity >100 ng/mL (>250 nmol/L) Absolute lymphocyte counton 03-03-2022 Lymphocytes Auto (Unsp spec) [#/Vol] 2.11 10*3/uL 0.83-4.51 [facility] Work Phone: Basophil percentageon 2021 Basophils/100 WBC (Bld) 0.9 % 0-1 [facility] Work Phone: Bilirubin [Mass/Vol] 0.40 mg/dL 0.20-1.00 [facility] Work Phone: [phone] Comment on above: For patients on eltr ombopag therapy, use of Dimension Orosi TBIL is not recommended. Chloride [Moles/Vol] 107 mmol/L 98-107 [facility] Work Phone: Cholesterol [Mass/Vol] 203 mg/dL <200 [facility] Work Phone: Comment on above: <200 mg/dL Desirable 200-240 mg/dL Borderline >240 mg/dL High Risk Eosinophils/100 WBC (Bld) 3.5 % 0-5 [facility] Work Phone: Glucose [Mass/Vol] 98 mg/dL 74-106 [facility] Work Phone: Neutrophils (Bld) [#/Vol] 3.8 10*3/uL 2.0-7.7 [facility] Work Phone: Neutrophils/100 WBC (Bld) 56.5 % 47-70 [facility] Work Phone: Potassium [Moles/Vol] 4.0 mmol/L 3.5-5.1 [facility] Work Phone: Protein [Mass/Vol] 7.3 g/dL 6.4-8.2 [facility] Work Phone: Sodium [Moles/Vol] 140 mmol/L 136-145 [facility] Work Phone: Triglyceride [Mass/Vol] 132 mg/dL <199 [facility] Work Phone: Comment on above: The drugs N-Acetylcy steine and Metamizole may falsely depress this assay.Serum Triglycerides Reference Interval Normal <150 mg/dL Borderline high 150 - 199 mg/dL High 200 - 499 mg/dL Very High > or = 500 mg/dL WBC (Bld) [#/Vol] 6.8 10*3/uL 4.4-11.0 [facility] Work Phone: Blood erythrocytes count (nu mber/volume)on 03-03-2022 RBC (Bld) [#/Vol] 5.43 10*6/uL 4.6-6.2 [facility] Work Phone: Blood hemoglobin measurement (mass/volume)on 03-03-2022 Hemoglobin (Bld) [Mass/Vol] 16.6 g/dL 13.0-16.5 [facility] Work Phone: Blood lymphocytes/100 leukoc yteson 03-03-2022 Lymphocytes/100 WBC (Bld) 31.0 % 19-41 [facility] Work Phone: Blood monocytes/100 leukocyt eson 03-03-2022 Monocytes/100 WBC (Bld) 7.5 % 0-10 [facility] Work Phone: Blood platelet mean volumeon 03-03-2022 Platelet mean volume (Bld) [Entitic vol] 11.0 fL 6.2-12.0 [facility] Work Phone: Determination of erythrocyte mean corpuscular volume (MCV)on 03-03-2022 MCV (RBC) [Entitic vol] 89.5 fL 80-94 [facility] Work Phone: Hematocrit Auto (Bld) [Volum e fraction]on 03-03-2022 Hematocrit (Bld) [Volume fraction] 48.6 % 40-54 [facility] Work Phone: Laboratory - Chemistry and C hemistry - challengeon 03-03-2022 ALP [Catalytic activity/Vol] 57 U/L 45-117 [facility] Work Phone: ALT [Catalytic activity/Vol] 39 U/L 16-61 [facility] Work Phone: CO2 [Moles/Vol] 28.0 mmol/L 21.0-32.0 [facility] Work Phone: Globulin (S) [Mass/Vol] 3.4 g/dL 2.2-4.2 [facility] Work Phone: Urea nitrogen/Creatinine [Mass ratio] 15.2 mg/mg 10-20 [facility] Work Phone: Laboratory - Hematology and Cell countson 03-03-2022 Erythrocyte distribution width (RBC) [Entitic vol] 42.5 fL 35.1-43.9 [facility] Work Phone: Erythrocyte distribution width (RBC) [Ratio] 12.9 % 11.6-14.6 [facility] Work Phone: Immature granulocytes/100 WBC (Bld) 0.600 % 0.0-0.9 [facility] Work Phone: Comment on above: IG% - Immature Granu locytes (promyelocytes, myelocytes and metamyelocytes) > 1% indicates that a LEFT SHIFT is Present. MCH (RBC) [Entitic mass] 30.6 pg 27.0-32.0 [facility] Work Phone: Nucleated RBC/100 WBC (Bld) [Ratio] 0 % 0-5 [facility] Work Phone: MCHC Auto (RBC) [Mass/Vol]on 03-03-2022 MCHC (RBC) [Mass/Vol] 34.2 g/dL 32-36 [facility] Work Phone: No Panel Informationon 03-03 Estimated GFR (MDRD) Amer 132 mL/min >60 [facility] Work Phone: Comment on above: GFR Calc Estimated GFR (MDRD) Non-Af Amer 109 mL/min >60 [facility] Work Phone: Comment on above: Non- GFR Calc Prostate Specific Antigen Screen 1.22 ng/mL 0.00-4.00 [facility] Work Phone: Comment on above: This test was perfor med using the TPSA assay method for the[employer] chemistry system. Values obtained with differentassay methods cannot be used interchangably.When changing PSA assays in the course of monitoring apatient, additional sequential testing should be carriedout to confirm baseline values. Platelets bldon 03-03-2022 Platelets (Bld) [#/Vol] 261 10*3/uL 150-450 [facility] Work Phone: Serum or plasma albumin ashley urement (mass/volume)on 03-03-2022 Albumin [Mass/Vol] 3.9 g/dL 3.2-5.0 [facility] Work Phone: Serum or plasma albumin/glob ulin mass ratioon 03-03-2022 Albumin/Globulin [Mass ratio] 1.1 {ratio} 0.9-2.4 [facility] Work Phone: Serum or plasma calcium ashley urement (mass/volume)on 03-03-2022 Calcium [Mass/Vol] 8.8 mg/dL 8.5-10.1 [facility] Work Phone: Serum or plasma cholesterol in HDL measurement (mass/volume)on 03-03-2022 Cholesterol in HDL [Mass/Vol] 37 mg/dL >40 [facility] Work Phone: Comment on above: The drugs N-Acetylcy steine and Metamizole may falsely depress this assay. Reference Range HDL <40 mg/dL Low HDL Cholesterol HDL >or= 60 mg/dL High HDL Cholesterol Serum or plasma cholesterol in VLDL measurement (mass/volume)on 03-03-2022 Cholesterol in VLDL [Mass/Vol] 26 mg/dL 5-40 [facility] Work Phone: Serum or plasma creatinine m easurement (mass/volume)on 03-03-2022 Creatinine [Mass/Vol] 0.79 mg/dL 0.70-1.30 [facility] Work Phone: Comment on above: The validity of the calculated GFR & GFRAA in patients over 70 years has not been determined. Clinical correlation is essential. Serum or plasma low density lipoprotein (LDL) cholesterol measurement (mass/volume)on 03-03-2022 Cholesterol in LDL [Mass/Vol] 140 mg/dL 0-130 [facility] Work Phone: Serum or plasma urea nitroge n measurement (mass/volume)on 03-03-2022 Urea nitrogen [Mass/Vol] 12 mg/dL 7-18 [facility] Work Phone: Thin prep Papanicolaou smear with manual screeningon 03-03-2022 Thin prep Papanicolaou smear with manual screening 17 U/L 15-37 [facility] Work Phone: Thin prep Papanicolaou smear with manual screening 5 5-15 [facility] Work Phone: Encounters Encounter Date Encounter Type Care Provider Facility Start: 09-06-[address] [facility] Facility: [facility] Start: 08-15-[address] [facility] Facility: [facility] Start: 08-14-2025 End: 08-14-2025 ambulatory [facility] Facility:[facility] Start: 08-10-2025 End: 08-10-2025 [facility] Facility:[facility] Start: 07-26-[address] [facility] Facility: [facility] Start: 07-10-2025 End: 07-10-[address] [facility] Facility:[facility] Start: 06-08-2025 Encounter for genera l adult medical examination without abnormal findings [facility] Start: 06-05-2025 End: 06-05-2025 ambulatory Honorio Reed See Facility:[facility] Start: 06-04-2025 End: 06-04-[address] [facility] Facility:[facility] Start: 05-07-2025 End: 05-07-2025 ambulatory Honorio L See Facility:[facility] Start: 03-07-2025 End: 03-07-2025 ambulatory Honorio L Seese Facility:[facility] Start: 01-09-2025 End: 01-09-2025 ambulatory [facility] Facility:[facility] Start: 12-28-2024 End: 12-28-2024 ambulatory Honorio Reed See Facility:[facility] Start: 12-08-2024 Encounter for rafat l adult medical examination without abnormal findings Stone Reid [facility] Start: 12-08-2024 ambulatory Stone WilkesJeanette Facility: [facility] Start: 11-13-2024 End: 11-13-2024 ambulatory Honorio Orourke Facility:[facility] Start: 06-28-2023 End: 06-28-2023 ambulatory [facility] Work Phone: Start: 06-28-2023 End: 06-28-2023 Patient encounter procedure [facility] Work Phone: Start: 05-20-2023 End: 05-20-2023 ambulatory [facility] Work Phone: Start: 05-20-2023 End: 05-20-2023 Patient encounter procedure [facility] Work Phone: Start: 06-05-2022 End: 06-05-2022 ambulatory [facility] Work Phone: Start: 06-05-2022 End: 06-05-2022 Patient encounter procedure [facility] Start: 03-03-2022 End: 03-03-2022 Patient encounter procedure [facility] Procedures Date Procedure Procedure Detail Performing Clinician Start: 06-28-2023 CT of chest Plan of Treatment Date Care Activity Detail Author Testosterone Free [M ass/volume] in Serum or Plasma [facility] Work Phone: Testosterone measurement [facility] Work Phone: [facility] Work Phone: Immunizations Immunization Date Immunization Notes Care Provider Fa cility 01-21-2021 Covid (Pfizer) [facility] 12-31-2020 Covid (Pfizer) [facility] Payers Date Payer Category Payer Unknown [id number] 2024 Self-pay [id number] 2022 Unknown [id number] Unknown [id number] Unknown [id number] 2.16.8 [id number] Unknown [id number] 2.16.8 [id number] Unknown [id number] 2.16.8 [id number] Unknown [id number] 2.16.8 [id number] Unknown [id number] 2.16.8 [id number] Unknown [id number] 2.16.8 [id number] Unknown [id number] 2.16.8 [id number] Unknown [id number] 2.16.8 [id number] Unknown [id number] 2.16.8 [id number] Unknown [id number] 2.16.8 [id number] Unknown [id number] 2.16.8 [id number] Unknown [id number] 2.16.8 [id number] Social History Date Type Detail Facility [facility]: [facility] Start: 04-18-2019 Cigarettes [facility] Start: 1970 Sex Assigned At Male [facility] Progress note 08-14-2025 Note Date & Type Note Facility 08-14-2025 Note HNO ID: [id number] Author: SHELBY CARRANZA APRN.LINDA Service: ? Author [...] underwent right orchiectomy at a hospital in [place]. 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 - No current pain or swelling in [...] followed by recurr (more content not included)... [facility] Progress note 08-14-2025 Note Date & Type Note Facility 08-14-2025 Note HNO ID: [id number] Author: LIZZ CHUNG MA Service: ? Author Type: [employer] Type: Progress Notes Filed: 08/14/2025 09:06 Note Text: 0 mL of urine in the bladder after voiding [facility] Progress note 08-10-2025 Note Date & Type Note Facility 08-10-2025 Note HNO ID: [id number] Author: ZOË RYAN APRN.CNP Service: ? Author [...] weight loss. He is accompanied by a senior oracle developer who provides additional history. The patient reports [...] dry heaving an (more content not included)... [facility] Evaluation note Note Date & Type Note Facility Evaluation note No assessment information availa [facility] Work Phone: Family History No Family History Records Found Relationship Condition Age at Onset Recorded Date/T cale sister Asthma Unknown grandfather Diabetes mellitus Unknown Advance Directives No Advanced Directives Records Found Advance Directive Response Recorded Date/ Time Living Will No April 18, 2019 1 :56pm Power of Cnc Manager No April 18, 2019 1:56pm Chief Complaint [...] section and content) DATE CREATED AUTHOR 08/14/2025 [facility] DATE CREATED AUTHOR AUTHOR'S ALYCE BILLINGSLEY 08/15/2025 [facility] FOR RECORDS PERTAINING TO PATIENTS WHO ARE [...] BE BASED ON THE PRIMARY CLINICAL RECORDS. [employer] provides no warranty or guarantee of the accuracy or completeness of information in this document.
== END | disposition home or self-care (01) ==
PROVIDERS: PCP Family Medicine; Referring Provider Family Medicine; Visit Provider Family Medicine
DX: R31.29 Other microscopic hematuria (principal); E11.9 Type 2 diabetes mellitus without complications; R63.4 Abnormal weight loss; R79.89 Other specified abnormal findings of blood chemistry; R82.90 Unspecified abnormal findings in urine; R53.83 Other fatigue
CPT/HCPCS: 36415; 74178; 80053; 81002; 82533; 83036; 84403; 84439; 84443; 85025; 85652; 86140; 88108; 88313; Q9967